=== PATIENT | female | born 1955 | race African-American/Black ===

== ENCOUNTER 2016-09-04 18:45 | Inpatient (IN) | payer OTHER ==
[~2016-09-04] VITALS: Ht 160 cm; Wt 46.3 kg
[2016-09-04] MEDS ORDERED: LOSARTAN POTASS50 MG ORAL (19:11)
[2016-09-04] MEDS ORDERED: METFORMIN HCL500 M1 ORAL (19:11)
[2016-09-04] MEDS ORDERED: LANTUS SOL100 UNIT/1 SUBQ (19:11)
[2016-09-04 19:20] VITALS: BP 123/87
[2016-09-04] MEDS ORDERED: Zosyn 2.25gm inj IV ONE (19:45)
[2016-09-04 20:01] LABS: MEAN CORPUSCULAR HEMOGLOBIN 28.5 PG (27.0-31.0); MEAN CORPUSCULAR HGB CONC 31.2 G/DL (32.0-36.0); MEAN CORPUSCULAR VOLUME 91 FL (80-99); PLATELET COUNT 647 K/UL (150-450); RED BLOOD COUNT 3.43 M/UL (4.20-5.40); RED CELL DISTRIBUTION WIDTH 12.6 % (11.6-14.8)
[2016-09-04 20:20] LABS: INR 1.2 (0.9-1.1); PROTHROMBIN TIME 12.2 SEC (9.30-11.50)
[2016-09-04 20:24] LABS: ALANINE AMINOTRANSFERASE 16 U/L (3-33); ALBUMIN/GLOBULIN RATIO 0.5 (1.0-2.7); ANION GAP 15 (5-15); ASPARTATE AMINO TRANSFERASE 18 U/L (5-40); CARBON DIOXIDE 23 mEQ/L (20-30); CHLORIDE 89 mEQ/L (98-107); CREATININE 0.7 mg/dL (0.5-0.9); GLOMERULAR FILTRATION RATE > 60 mL/min (>60); HEMOLYSIS 61; POTASSIUM 3.8 mEQ/L (3.4-4.9); SODIUM 127 mEQ/L (135-145); TOTAL PROTEIN 7.4 g/dL (6.6-8.7)
[2016-09-04] MEDS ORDERED: Zolpidem 5mg tab ORAL PRN (21:30)
[2016-09-04] MEDS ORDERED: NS 1000ml 1,400 ML IVLG ONE (21:30)
[2016-09-04] MEDS ORDERED: Miralax 17gm pkt ORAL PRN (21:30)
[2016-09-04] MEDS ORDERED: LORazepam Inj 2mg/ml 1ml IV PRN (21:30)
[2016-09-04 21:45] LABS: BAND NEUTROPHILS % (MANUAL) 2 % (0-8); LYMPHOCYTES % (MANUAL) 7 % (20-45); NEUTROPHILS % (MANUAL) 83 % (45-75); TOTAL CELLS COUNTED 100
[2016-09-04 21:46] LABS: ANISOCYTOSIS 1+; BASOPHILS % (MANUAL) 0 % (0-2); EOSINOPHILS % (MANUAL) 0 % (0-3); MACROCYTES 1+; PLATELET ESTIMATE INCREASED; POLYCHROMASIA 1+
[2016-09-04 21:47] LABS: PLATELET MORPHOLOGY NORMAL
[2016-09-04 21:56] VITALS: BP 86/46
--- NOTE | 2016-09-04 22:49 | Emergency Room Report ---
History of Present Illness General Chief Complaint: Skin Rash/Abscess Source: Patient (RAMA FAULKNER) Present Illness HPI The patient is a 61-year-old female with a history of hypertension and diabetes presenting with left foot pain. The patient states that she was seen at another hospital 2 weeks prior for infection of the left foot and was placed on wound care at home. The patient states that she has had 2 wound care visits since that time and believes the infection has now worsened. The patient states that she consulted her primary care physician who prescribed her with Keflex and told her to go to the emergency department. The pain of the left foot is described as an 8/10 dull ache it does not radiate. The patient denies numbness or tingling of the extremity. The patient states that she has lost toes on the right foot due to complications of diabetes. (RAMA FAULKNER) Allergies: Coded Allergies: No Known Allergies (Unverified , 09/04/16) Patient History Past Medical History: see triage record Pertinent Family History: none Reviewed Nursing Documentation: PMH: Agreed, PSxH: Agreed (RAMA FAULKNER) Nursing Documentation-PMH Past Medical History: No History, Except For Hx Hypertension: Yes Hx Diabetes: Yes (RAMA FAULKNER) Review of Systems All Other Systems: negative except mentioned in HPI (RAMA FAULKNER) Physical Exam Vital Signs Date Time Temp Pulse Resp B/P Pulse Ox O2 Delivery O2 Flow Rate FiO2 09/04/16 19:06 98.8 100 15 123/87 99 Room Air (RAMA FAULKNERABeth) Medical Decision Making PA Attestation Dr. Wagoner is my supervising physician. Patient management was discussed with my supervising physician (RAMA FAULKNER) Diagnostic Impression: Primary Impression: Severe sepsis Additional Impressions: Abscess of left foot including toes Diabetes mellitus with foot ulcer and gangrene Hyperglycemia due to type 1 diabetes mellitus Anemia, chronic disease Laboratory Tests Test 09/04/16 19:50 09/04/16 19:52 09/04/16 21:42 Lactate Dehydrogenase 272 U/L (135-230) H White Blood Count 31.0 K/UL (4.8-10.8) *H Red Blood Count 3.43 M/UL (4.20-5.40) L Hemoglobin 9.8 G/DL (12.0-16.0) L Hematocrit 31.2 % (37.0-47.0) L Mean Corpuscular Volume 91 FL (80-99) Mean Corpuscular Hemoglobin 28.5 PG (27.0-31.0) Mean Corpuscular Hemoglobin Concent 31.2 G/DL (32.0-36.0) L Red Cell Distribution Width 12.6 % (11.6-14.8) Platelet Count 647 K/UL (150-450) H Mean Platelet Volume 6.0 FL (6.5-10.1) L Neutrophils (%) (Auto) % (45.0-75.0) Lymphocytes (%) (Auto) % (20.0-45.0) Monocytes (%) (Auto) % (1.0-10.0) Eosinophils (%) (Auto) % (0.0-3.0) Basophils (%) (Auto) % (0.0-2.0) Differential Total Cells Counted 100 Neutrophils % (Manual) 83 % (45-75) H Lymphocytes % (Manual) 7 % (20-45) L Monocytes % (Manual) 8 % (1-10) Eosinophils % (Manual) 0 % (0-3) Basophils % (Manual) 0 % (0-2) Band Neutrophils 2 % (0-8) Platelet Estimate Increased H Platelet Morphology Normal Polychromasia 1+ Anisocytosis 1+ Macrocytosis 1+ Prothrombin Time 12.2 SEC (9.30-11.50) H Prothrombin Time INR 1.2 (0.9-1.1) H PTT 33 SEC (23-33) Sodium Level 127 mEQ/L (135-145) L Potassium Level 3.8 mEQ/L (3.4-4.9) Chloride Level 89 mEQ/L (98-107) L Carbon Dioxide Level 23 mEQ/L (20-30) Anion Gap 15 (5-15) Blood Urea Nitrogen 20 mg/dL (7-23) Creatinine 0.7 mg/dL (0.5-0.9) Estimate Glomerular Filtration Rate > 60 mL/min (>60) Glucose Level 323 mg/dL (74-106) H Calcium Level 9.0 mg/dL (8.6-10.2) Total Bilirubin 0.5 mg/dL (0.0-1.2) Aspartate Amino Transferase (AST) 18 U/L (5-40) Alanine Aminotransferase (ALT) 16 U/L (3-33) Alkaline Phosphatase 164 U/L (35-104) H Total Protein 7.4 g/dL (6.6-8.7) Albumin 2.7 g/dL (3.5-5.2) L Globulin 4.7 g/dL Albumin/Globulin Ratio 0.5 (1.0-2.7) L Lactic Acid Level 1.10 mmol/L (0.66-2.22) (RAMA FAULKNER) ER Course Patient signed out to me. She's waiting medical surgical bed for diabetic foot infection. She actually has severe gangrene with cellulitis and abscess. She most likely has osteomyelitis and no evidence of necrotizing fasciitis. I sent a wound culture to take her therapy. Blood pressure was dropping somewhat IV fluid given. She will be upgraded to telemetry. (RYAN ZHAO M.D.) Last Vital Signs Date Time Temp Pulse Resp B/P Pulse Ox O2 Delivery O2 Flow Rate FiO2 09/04/16 21:56 98.6 83 21 86/46 98 Room Air Status: improved (RAMA FAULKNER) Disposition: ADMITTED INPATIENT Condition: Serious Referrals: [facility],REFERR[facility] (PCP) RAMA FAULKNER Sep 04, 2016 22:49 RYAN ZHAO M.D. Sep 04, 2016 23:33
[2016-09-04] MEDS ORDERED: Cefepime 2gm ONE (22:56)
[2016-09-04 23:51] VITALS: BP 119/89
[2016-09-05] VITALS (9 sets, daily range): BP systolic 90–138; BP diastolic 51–85
[2016-09-05] MEDS ORDERED: Tubing IV Cassette IV ONE ×2 (01:05→05:44)
[2016-09-05] MEDS ORDERED: Vancomycin 1gm inj IVPB ONE (01:05)
[2016-09-05] MEDS ORDERED: NS 250 ML ONE (01:05)
[2016-09-05] MEDS: Vancomycin 1gm/D5W 250ml IVPB SCH ×4 (01:07→13:46)
[2016-09-05] MEDS ORDERED: Cefepime 2gm ONE (05:43)
[2016-09-05] MEDS ORDERED: D5W 50 ML IV ONE (05:44)
[2016-09-05 08:13] LABS: MEAN CORPUSCULAR HEMOGLOBIN 30.1 PG (27.0-31.0); MEAN CORPUSCULAR HGB CONC 33.9 G/DL (32.0-36.0); MEAN CORPUSCULAR VOLUME 89 FL (80-99); MEAN PLATELET VOLUME 6.4 FL (6.5-10.1); PLATELET COUNT 663 K/UL (150-450); RED BLOOD COUNT 3.39 M/UL (4.20-5.40); RED CELL DISTRIBUTION WIDTH 12.3 % (11.6-14.8)
[2016-09-05 08:14] LABS: WHITE BLOOD COUNT 26.4 K/UL (4.8-10.8)
[2016-09-05 08:28] LABS: ALANINE AMINOTRANSFERASE 29 U/L (3-33); ALBUMIN/GLOBULIN RATIO 0.5 (1.0-2.7); ANION GAP 18 (5-15); ASPARTATE AMINO TRANSFERASE 39 U/L (5-40); CALCIUM 8.1 mg/dL (8.6-10.2); CARBON DIOXIDE 19 mEQ/L (20-30); CHLORIDE 98 mEQ/L (98-107); CHOLESTEROL 89 mg/dL (< 200); CHOLESTEROL/HDL RATIO 4.2 (3.3-4.4); CREATININE 0.5 mg/dL (0.5-0.9); GLOMERULAR FILTRATION RATE > 60 mL/min (>60); HEMOLYSIS 1; LDL CHOLESTEROL (CALC.) 47 mg/dL (60-99); POTASSIUM 3.2 mEQ/L (3.4-4.9); SODIUM 135 mEQ/L (135-145); TOTAL PROTEIN 6.7 g/dL (6.6-8.7)
[2016-09-05] MEDS: NovoLOG Insulin Flexpen SUBQ SCH ×4 (08:49→21:04)
[2016-09-05 10:06] LABS: BAND NEUTROPHILS % (MANUAL) 8 % (0-8); BASOPHILS % (MANUAL) 0 % (0-2); EOSINOPHILS % (MANUAL) 1 % (0-3); LYMPHOCYTES % (MANUAL) 4 % (20-45); NEUTROPHILS % (MANUAL) 80 % (45-75); PLATELET ESTIMATE INCREASED; PLATELET MORPHOLOGY NORMAL; TOTAL CELLS COUNTED 100
[2016-09-05 10:07] LABS: ANISOCYTOSIS 1+; BURR CELLS OCCASIONAL
[2016-09-05] MEDS ORDERED: NEURONTIN300 MG ORAL (11:00)
[2016-09-05] MEDS ORDERED: LIPITOR80 MG ORAL (11:00)
[2016-09-05] MEDS ORDERED: CEPHALEXIN250 MG ORAL (11:00)
--- NOTE | 2016-09-05 11:01 | Diagnostic Imaging Report ---
Indication: Pain Comparison: None Findings: 3 views of the left foot were obtained. Soft tissue swelling is present. There is a osteolytic defect suspected in the area of the first distal phalange as well as the fourth distal phalange suspicious for osteomyelitis. Differential includes subacute fractures with adjacent bone loss secondary to hyperemia. Please correlate clinically. Generalized soft tissue swelling is present. Impression: Trauma versus infection as discussed above. Please correlate clinically.
[2016-09-05] MEDS: Losartan 50mg tab ORAL SCH (11:50)
[2016-09-05] MEDS: Heparin 5000 units/ml inj SUBQ SCH ×2 (11:53→20:59)
--- NOTE | 2016-09-05 16:56 | History and Physical ---
History of Present Illness General Date patient seen: Sep 05, 2016 Time patient seen: 16:00 Reason for Hospitalization: L foot ulcer Present Illness HPI 61 y/old female presented with 3 weeks of nonhealing L foot wound and left foot pain L foot wound after accidental slip and fall patient with hx of DM and PVD, hx of recent R great toe amputation ( November2015) , ambulates with walker after surgery, slipped and fall and injured L foot able to ambulate with walker, however wound is not healing seen providers in [facility], nothing was done then she fup with new PCP and started on oral abx without much success PMD recommended visit to ER for IV abx upon arrival to ED workup revealed severe leukocytosis -31.0, afebrile, lactic acid WNL started on IVF resuscitation septic workup initiated and afterwards started on empiric abx in addition,evidence of acute hypo Na -126, resolved after IVF resuscitation Allergies: Coded Allergies: No Known Allergies (Unverified , 09/04/16) Medication History Scheduled Atorvastatin (Lipitor), 40 MG ORAL BEDTIME, (Reported) Cephalexin (Cephalexin), 250 MG ORAL EVERY 6 HOURS, (Reported) Gabapentin (Neurontin), 300 MG ORAL THREE TIMES A DAY, (Reported) Insulin Glargine (Lantus), 0 SUBQ BEDTIME, (Reported) Losartan Potassium* (Losartan Potassium*), 50 MG ORAL DAILY, (Reported) Metformin Hcl* (Metformin Hcl*), 500 MG ORAL TWICE A DAY, (Reported) Patient History History Provided By: Patient Healthcare decision maker Resuscitation status Full Code Advanced Directive on File Past Medical/Surgical History Past Medical/Surgical History: (1) PVD (peripheral vascular disease) (2) HTN (hypertension) (3) Diabetes mellitus with foot ulcer and gangrene (4) Anemia, chronic disease Review of Systems Constitutional: Reports: weakness Eye: Reports: no symptoms ENT: Reports: no symptoms Respiratory: Reports: no symptoms Cardiovascular: Reports: no symptoms, other - hx of HTN Gastrointestinal: Reports: no symptoms Genitourinary: Reports: no symptoms Musculoskeletal: Reports: see HPI Skin: Reports: see HPI Psychiatric: Reports: no symptoms Neurological: Reports: no symptoms Endocrine: Reports: other - diabetes Hematologic/Lymphatic: Reports: anemia Physical Exam General Appearance: no apparent distress, alert, cachetic Lines, tubes and drains: peripheral HEENT: normocephalic, atraumatic, anicteric, mucous membranes moist, PERRL Neck: non-tender, supple Respiratory/Chest: lungs clear, no respiratory distress, no accessory muscle use Cardiovascular/Chest: normal rate, regular rhythm, no JVD Abdomen: normal bowel sounds, non tender, soft Extremities: other - R great toe amputated, healed, L foot ulcer ( see pics) Neurologic: abnormal gait, alert, responsive, normal mood/affect Musculoskeletal: atrophy - BLE Last 24 Hour Vital Signs Date Time Temp Pulse Resp B/P Pulse Ox O2 Delivery O2 Flow Rate FiO2 09/05/16 11:55 98.0 78 18 108/61 100 Room Air 09/05/16 11:50 108/59 09/05/16 10:20 97.4 89 18 120/72 100 Room Air 09/05/16 08:50 99 14 131/79 98 Room Air 09/05/16 07:25 97.3 97 18 138/83 100 Room Air 09/05/16 06:34 88 24 102/63 100 Room Air 09/05/16 05:00 86 24 133/85 95 Room Air 09/05/16 03:22 88 22 106/63 100 Room Air 09/05/16 01:30 88 22 90/57 100 Room Air 09/04/16 23:51 97.4 91 13 119/89 96 Room Air 09/04/16 21:56 98.6 83 21 86/46 98 Room Air 09/04/16 20:58 98.8 09/04/16 19:20 98.8 98 15 123/87 99 Room Air 09/04/16 19:06 98.8 100 15 123/87 99 Room Air Intake and Output 09/04/16 09/05/16 19:00 07:00 Intake Total 1600 ml Balance 1600 ml IV Total 1600 ml # Voids 1 # Bowel Movements 2 Laboratory Tests Test 09/04/16 19:50 09/04/16 19:52 09/04/16 21:42 09/05/16 07:30 Lactate Dehydrogenase 272 U/L (135-230) H White Blood Count 31.0 K/UL (4.8-10.8) *H 26.4 K/UL (4.8-10.8) *H Red Blood Count 3.43 M/UL (4.20-5.40) L 3.39 M/UL (4.20-5.40) L Hemoglobin 9.8 G/DL (12.0-16.0) L 10.2 G/DL (12.0-16.0) L Hematocrit 31.2 % (37.0-47.0) L 30.1 % (37.0-47.0) L Mean Corpuscular Volume 91 FL (80-99) 89 FL (80-99) Mean Corpuscular Hemoglobin 28.5 PG (27.0-31.0) 30.1 PG (27.0-31.0) Mean Corpuscular Hemoglobin Concent 31.2 G/DL (32.0-36.0) L 33.9 G/DL (32.0-36.0) Red Cell Distribution Width 12.6 % (11.6-14.8) 12.3 % (11.6-14.8) Platelet Count 647 K/UL (150-450) H 663 K/UL (150-450) H Mean Platelet Volume 6.0 FL (6.5-10.1) L 6.4 FL (6.5-10.1) L Neutrophils (%) (Auto) % (45.0-75.0) % (45.0-75.0) Lymphocytes (%) (Auto) % (20.0-45.0) % (20.0-45.0) Monocytes (%) (Auto) % (1.0-10.0) % (1.0-10.0) Eosinophils (%) (Auto) % (0.0-3.0) % (0.0-3.0) Basophils (%) (Auto) % (0.0-2.0) % (0.0-2.0) Differential Total Cells Counted 100 100 Neutrophils % (Manual) 83 % (45-75) H 80 % (45-75) H Lymphocytes % (Manual) 7 % (20-45) L 4 % (20-45) L Monocytes % (Manual) 8 % (1-10) 7 % (1-10) Eosinophils % (Manual) 0 % (0-3) 1 % (0-3) Basophils % (Manual) 0 % (0-2) 0 % (0-2) Band Neutrophils 2 % (0-8) 8 % (0-8) Platelet Estimate Increased H Increased H Platelet Morphology Normal Normal Polychromasia 1+ Anisocytosis 1+ 1+ Macrocytosis 1+ Prothrombin Time 12.2 SEC (9.30-11.50) H Prothromb Time International Ratio 1.2 (0.9-1.1) H Activated Partial Thromboplast Time 33 SEC (23-33) Sodium Level 127 mEQ/L (135-145) L 135 mEQ/L (135-145) Potassium Level 3.8 mEQ/L (3.4-4.9) 3.2 mEQ/L (3.4-4.9) L Chloride Level 89 mEQ/L (98-107) L 98 mEQ/L (98-107) Carbon Dioxide Level 23 mEQ/L (20-30) 19 mEQ/L (20-30) L Anion Gap 15 (5-15) 18 (5-15) H Blood Urea Nitrogen 20 mg/dL (7-23) 14 mg/dL (7-23) Creatinine 0.7 mg/dL (0.5-0.9) 0.5 mg/dL (0.5-0.9) Estimat Glomerular Filtration Rate > 60 mL/min (>60) > 60 mL/min (>60) Glucose Level 323 mg/dL (74-106) H 327 mg/dL (74-106) H Calcium Level 9.0 mg/dL (8.6-10.2) 8.1 mg/dL (8.6-10.2) L Total Bilirubin 0.5 mg/dL (0.0-1.2) 0.4 mg/dL (0.0-1.2) Aspartate Amino Transf (AST/SGOT) 18 U/L (5-40) 39 U/L (5-40) Alanine Aminotransferase (ALT/SGPT) 16 U/L (3-33) 29 U/L (3-33) Alkaline Phosphatase 164 U/L (35-104) H 251 U/L (35-104) H Total Protein 7.4 g/dL (6.6-8.7) 6.7 g/dL (6.6-8.7) Albumin 2.7 g/dL (3.5-5.2) L 2.4 g/dL (3.5-5.2) L Globulin 4.7 g/dL 4.3 g/dL Albumin/Globulin Ratio 0.5 (1.0-2.7) L 0.5 (1.0-2.7) L Lactic Acid Level 1.10 mmol/L (0.66-2.22) [place] Cells Occasional Hemoglobin A1c 13.0 % (< 6.0) H Triglycerides Level 106 mg/dL (< 150) Cholesterol Level 89 mg/dL (< 200) LDL Cholesterol 47 mg/dL (60-99) L HDL Cholesterol 21 mg/dL (> 60) Cholesterol/HDL Ratio 4.2 (3.3-4.4) Thyroid Stimulating Hormone (TSH) 1.610 uIU/mL (0.300-4.500) Height (Feet): 5 Height (Inches): 3.00 Weight (Pounds): 102 Medications Current Medications Medications (Trade) Dose Ordered Sig/Darryl Route PRN Reason Start Time Stop Time Status Last Admin Dose Admin Acetaminophen (Tylenol) 650 mg Q4H PRN ORAL fever 09/04/16 21:30 10/04/16 21:29 Al Hydroxide/Mg Hydroxide (Mylanta II) 30 ml Q6H PRN ORAL dyspepsia 09/04/16 21:30 10/04/16 21:29 Cefepime HCl/ Dextrose (Maxipime/D5W 50ml) 50 ml @ 100 mls/hr EVERY 8 HOURS IVPB 09/05/16 14:00 09/11/16 22:59 09/05/16 13:03 Dextrose (Dextrose 50%) STAT PRN IV Hypoglycemia 09/04/16 21:30 10/04/16 21:29 Heparin Sodium (Porcine) (Heparin 5000 units/ml) 5,000 units EVERY 12 HOURS SUBQ 09/05/16 09:00 10/05/16 08:59 09/05/16 11:53 Insulin Aspart BEFORE MEALS AND HS SUBQ 09/05/16 06:30 10/05/16 06:29 09/05/16 11:53 Lorazepam (Ativan 2mg/ml 1ml) 0.5 mg Q4H PRN IV For Anxiety 09/04/16 21:30 09/11/16 21:29 Losartan Potassium (Cozaar) 50 mg DAILY ORAL 09/05/16 09:00 10/05/16 08:59 09/05/16 11:50 Morphine Sulfate (Morphine Sulfate) 1 mg EVERY 4 HOURS PRN IVP For Pain 09/04/16 21:30 09/11/16 21:29 Ondansetron HCl (Zofran) 4 mg Q6H PRN IVP Nausea & Vomiting 09/04/16 21:30 10/04/16 21:29 Polyethylene Glycol (Miralax) 17 gm HSPRN PRN ORAL Constipation 09/04/16 21:30 10/04/16 21:29 Vancomycin HCl (Vanco rx to dose) 1 ea DAILY PRN MISC Per rx protocol 09/04/16 21:30 10/04/16 21:29 Vancomycin HCl 1 gm/Dextrose 250 ml @ 167 mls/hr Q12H IVPB 09/05/16 01:00 09/10/16 00:59 09/05/16 13:46 Zolpidem Tartrate (Ambien) 5 mg HSPRN PRN ORAL Insomnia 09/04/16 21:30 10/04/16 21:29 Assessment/Plan Status Narrative ASSESSMENT possible sepsis leukocytosis Left foot ulcer possible cellulitis possible osteomyelitis DOOC PVD chronic diarrhea acute hyponatremia, resolved hypokalemia Hx of HTN anemia of chronic disease cachexia PLAN OF CARE MS floor ID consult empiric abx fup with cx MRI L foot r/o osteo check ESR, CRP Venous and Arterial Duplex BLE BS management, check HgA1c -13 check lipid panel BP stable on ARB hold SBR below 120 hypo Na resolved after IVF, likely depletional K replaced monitor lytes and renal parameters avoid nephrotoxic monitor HH, anemia workup wound care, wound nurse eval DVT prophylaxis fall precautions PT/OT pain management Bowel regimen case discussed and evaluated by supervising physician Neal (Princess)Rhonda NP Sep 05, 2016 16:56
[2016-09-05] MEDS ORDERED: NS 275ml ONE (17:51)
[2016-09-05] MEDS ORDERED: Tubing IV Secondary IV ONE (17:51)
[2016-09-05] MEDS: Mylanta II UD 30ml ORAL PRN (21:06)
[2016-09-06] VITALS (7 sets, daily range): BP systolic 76–139; BP diastolic 37–88
[2016-09-06] MEDS: Vancomycin 1gm/D5W 250ml IVPB SCH ×4 (01:16→12:45)
[2016-09-06] MEDS: NovoLOG Insulin Flexpen SUBQ SCH ×4 (06:25→21:06)
[2016-09-06] MEDS: Losartan 50mg tab ORAL SCH (09:54)
[2016-09-06] MEDS: Heparin 5000 units/ml inj SUBQ SCH ×2 (09:56→21:07)
--- NOTE | 2016-09-06 13:55 | Consultation ---
Consult Note Consult Note ID Dic # [id number] Assessment/Plan A: Leukocytosis LT foot infection / Ischemic changes / probable Osteo / Cellulitis Ro bacteremia HIV Neg in Jul 2016 ( as per Pt ) Ch Diarrhea x 6 mo DM probable PVD and HTN P: Cont pt on IV Vanco and change Cefepime to Zosyn Monitor BMP Monitor CBC Monitor LFT Monitor Cx ( Bl , Wnd, stool Cx) Stool Cryptosporidium, OB, C Diff , WBC Doppler : P HIV Ab :P MRI Lt foot ERIN KEITH M.D. Sep 06, 2016 13:55
--- NOTE | 2016-09-06 15:37 | Pulmonology Progress Note ---
Assessment/Plan Assessment/Plan ASSESSMENT possible sepsis leukocytosis Left foot ulcer possible cellulitis possible osteomyelitis DOOC PVD chronic diarrhea acute hyponatremia, resolved hypokalemia Hx of HTN anemia of chronic disease cachexia PLAN OF CARE MS floor ID consult empiric abx fup with cx: wound cx, stool C dfi, stool for crypto, OP blood cx preliminary negative MRI L foot r/o osteo check ESR, CRP Venous and Arterial Duplex BLE BS management, not controlled HgA1c -13 start Levemir and SS of insulin, titrate in am to add short acting insulin premeal lipid panel stable BP stable on ARB hold SBR below 120 hypo Na resolved after IVF, likely depletional K replaced monitor lytes and renal parameters avoid nephrotoxic monitor HH, anemia workup wound care, wound nurse eval DVT prophylaxis fall precautions PT/OT pain management Bowel regimen case discussed and evaluated by supervising physician Subjective Allergies: Coded Allergies: No Known Allergies (Unverified , 09/04/16) Subjective afebrile, leucocytosis with small trend down seen adn evaluated by ID Objective Last 24 Hour Vital Signs Date Time Temp Pulse Resp B/P Pulse Ox O2 Delivery O2 Flow Rate FiO2 09/06/16 09:54 112/75 09/06/16 08:00 97.9 102 20 112/75 100 Room Air 09/06/16 04:00 98.1 92 20 139/88 100 Room Air 09/06/16 00:00 98.6 87 18 101/60 99 Room Air 09/05/16 20:00 99.0 88 21 99/51 99 Room Air 09/05/16 16:00 98.2 87 22 98/61 97 Room Air Intake and Output 09/05/16 09/06/16 19:00 07:00 Intake Total 800 ml 940 ml Output Total 300 ml Balance 800 ml 640 ml Intake Oral 500 ml 890 ml IV Total 300 ml 50 ml Output Stool Total 300 ml # Voids 1 4 # Bowel Movements 3 3 Objective General Appearance: no apparent distress, alert, cachetic Lines, tubes and drains: peripheral HEENT: normocephalic, atraumatic, anicteric, mucous membranes moist, PERRL Neck: non-tender, supple Respiratory/Chest: lungs clear, no respiratory distress, no accessory muscle use Cardiovascular/Chest: normal rate, regular rhythm, no JVD Abdomen: normal bowel sounds, non tender, soft Extremities: other - R great toe amputated, healed, L foot ulcer ( see pics) Neurologic: abnormal gait, alert, responsive, normal mood/affect Musculoskeletal: atrophy - BLE Microbiology Date/Time Source Procedure Growth Status 09/04/16 21:42 Blood Blood Culture - Preliminary NO GROWTH AFTER 24 HOURS Resulted 09/04/16 21:25 Blood Blood Culture - Preliminary NO GROWTH AFTER 24 HOURS Resulted Laboratory Tests 09/06/16 12:30: Vancomycin Level Trough 11.4 Current Medications Medications (Trade) Dose Ordered Sig/Darryl Route PRN Reason Start Time Stop Time Status Last Admin Dose Admin Acetaminophen (Tylenol) 650 mg Q4H PRN ORAL fever 09/04/16 21:30 10/04/16 21:29 Al Hydroxide/Mg Hydroxide (Mylanta II) 30 ml Q6H PRN ORAL dyspepsia 09/04/16 21:30 10/04/16 21:29 09/05/16 21:06 Dextrose (Dextrose 50%) STAT PRN IV Hypoglycemia 09/04/16 21:30 10/04/16 21:29 Heparin Sodium (Porcine) (Heparin 5000 units/ml) 5,000 units EVERY 12 HOURS SUBQ 09/05/16 09:00 10/05/16 08:59 09/06/16 09:56 Insulin Aspart BEFORE MEALS AND HS SUBQ 09/05/16 06:30 10/05/16 06:29 09/06/16 12:48 Insulin Detemir (Levemir) 10 units Q24H SUBQ 09/06/16 21:00 10/06/16 20:59 Lorazepam (Ativan 2mg/ml 1ml) 0.5 mg Q4H PRN IV For Anxiety 09/04/16 21:30 09/11/16 21:29 Losartan Potassium (Cozaar) 50 mg DAILY ORAL 09/05/16 09:00 10/05/16 08:59 09/06/16 09:54 Morphine Sulfate (Morphine Sulfate) 1 mg EVERY 4 HOURS PRN IVP For Pain 09/04/16 21:30 09/11/16 21:29 Ondansetron HCl (Zofran) 4 mg Q6H PRN IVP Nausea & Vomiting 09/04/16 21:30 10/04/16 21:29 Piperacillin Sod/ Tazobactam Sod/ Dextrose (Zosyn/D5W 100ml) 100 ml @ 25 mls/hr EVERY 8 HOURS IVPB 09/06/16 15:00 09/11/16 14:59 Polyethylene Glycol (Miralax) 17 gm HSPRN PRN ORAL Constipation 09/04/16 21:30 10/04/16 21:29 Vancomycin HCl (Vanco rx to dose) 1 ea DAILY PRN MISC Per rx protocol 09/04/16 21:30 10/04/16 21:29 Vancomycin HCl 1 gm/Dextrose 250 ml @ 167 mls/hr Q12H IVPB 09/05/16 01:00 09/10/16 00:59 09/06/16 12:45 Zolpidem Tartrate (Ambien) 5 mg HSPRN PRN ORAL Insomnia 09/04/16 21:30 10/04/16 21:29 Neal (Rhonda Baca NP Sep 06, 2016 15:37
[2016-09-06] MEDS: Morphine Sulfate 2mg/ml Inj IVP PRN (16:48)
--- NOTE | 2016-09-06 16:51 | Wound Care Consultation ---
Wound Assessment Wound Assessment #1: Wound Present on Admission: Yes New Wound: No Status Change of Wound: No Wound Location Body Site Modif: left, plantar Wound Location Body Site: foot Wound Type: vascular issue w/vascular changes Cricket Test: Does not Cricket Vascular Issues: diabetic foot ulcers Wound Thickness: Full Thickness Wound Length: 8.0 Wound Width: 4.0 Wound Depth: utd Percent of Wound Bed Yellow/Wh: 100 Wound Drainage Amount: None Wound Drainage Odor: Foul Odor Tissue Surrounding Wound: Indurated Wound Assessment #2: Wound Number: #2 Wound Present on Admission: Yes New Wound: No Status Change of Wound: No Wound Location Body Site Modif: left, posterior Wound Location Body Site: toe - big, 2nd,3rd,4th Wound Type: vascular issue w/vascular changes Vascular Issues: diabetic foot ulcers Wound Thickness: Full Thickness Percent of Wound Black/Brown: 100 Wound Drainage Description: Foul Purulent Wound Drainage Amount: Moderate Wound Drainage Odor: Foul Odor Tissue Surrounding Wound: Macerated Wound General Appearance: Blackened, Draining, Necrotic Wound Assessment #3: Wound Number: #3 Wound Present on Admission: Yes New Wound: No Status Change of Wound: No Wound Location Body Site Modif: left, anterior, dorsal Wound Location Body Site: foot Wound Type: vascular issue w/vascular changes Cricket Test: Does not Cricket Wound Thickness: Full Thickness Wound Length: 2.0 Wound Width: 2.5 Wound Depth: utd Wound Drainage Amount: Moderate Wound Drainage Odor: Foul Odor Tissue Surrounding Wound: Indurated Wound General Appearance: Draining, Necrotic Wound Assessment #4: Wound Number: #4 Wound Present on Admission: Yes New Wound: No Status Change of Wound: No Wound Location Body Site Modif: left, anterior Wound Location Body Site: toe - big,2nd,3rd,4th,5th Wound Type: vascular issue w/vascular changes Cricket Test: Does not Cricket Vascular Issues: diabetic foot ulcers Wound Thickness: Full Thickness Wound Drainage Description: Serosanguineous Wound Drainage Amount: Moderate Wound Drainage Odor: Foul Odor Tissue Surrounding Wound: Denuded Wound General Appearance: Draining, Necrotic Wound Assessment #5: Wound Number: #5 Wound Present on Admission: Yes New Wound: No Status Change of Wound: No Wound Location Body Site Modif: left, lower, posterior Wound Location Body Site: leg Wound Type: vascular issue w/vascular changes Cricket Test: Does not Cricket Wound Thickness: Full Thickness Wound Length: 8.0 Wound Width: 4.5 Wound Depth: utd Percent of Wound Bed Yellow/Wh: 100 Wound Drainage Amount: None Wound Drainage Odor: None/Absent Tissue Surrounding Wound: Intact Wound Assessment #6: Wound Number: #6 Wound Present on Admission: Yes New Wound: No Status Change of Wound: No Wound Location Body Site Modif: right, lower, anterior Wound Location Body Site: leg Wound Type: vascular issue w/vascular changes Cricket Test: Does not Cricket Vascular Issues: diabetic foot ulcers Wound Thickness: Full Thickness Wound Length: 9.0 Wound Width: 4.5 Wound Depth: utd Percent of Wound Bed Yellow/Wh: 70 Percent of Wound Black/Brown: 30 Wound Drainage Amount: None Wound Drainage Odor: None/Absent Tissue Surrounding Wound: Intact Wound Comment Pt admitted with dry and draining DM wounds on Left and Right lower legs. Hx of DM with foot ulcer and gangrene, Right great toe amputation on 11/2015, PVD, Anemia. Pt stated "I had a fall incident and wounds wouldn't heal".According to Pt, she was treated with PO ATB but were not effective. Pt is on IV ATB therapy at this time. wounds on Left toe black in color and has odor. Recommendation -Podiatry consult -Local wound treatment:- cleanse with saline pat dry apply adaptic cover with 4x4 and wrap with kerlix till plant quality manager sees pt. -Offload both heels -Elevate both legs -Turn reposition -Keep clean and dry -Optimize nutrition -Assess and f/u with MD for any changes PATRICK OWUSU RN Sep 06, 2016 16:51
[2016-09-06] MEDS: Levemir Flexpen SUBQ SCH (21:07)
[2016-09-07] VITALS: BP 96/56
[2016-09-07] MEDS: Vancomycin 1gm/D5W 250ml IVPB SCH ×4 (00:51→11:42)
--- NOTE | 2016-09-07 01:07 | Consultation ---
DATE OF CONSULTATION: CONSULTING PHYSICIAN: Ryland Wayne M.D. REQUESTING PHYSICIAN: [facility] REASON FOR CONSULTATION: Evaluation of the patient for left foot infection and antibiotic management. HISTORY OF PRESENT ILLNESS: The patient is a 61-year-old female with multiple medical problems including history of hypertension, diabetes, stable post right first toe amputation, who came to the hospital due to the swelling and discoloration of the left foot. The patient has some purulent discharge from the toes. The patient was admitted with the impression of gangrene/ischemic changes of the left foot infection. An Infectious Disease consultation has been requested for further evaluation of the patient and antibiotic management. The patient was taking Keflex two days prior to admission. The above discoloration started about two weeks ago. MEDICATIONS: IV cefepime and vancomycin. ALLERGIES: No known drug allergies. SOCIAL HISTORY: Negative for alcohol, drug abuse, or smoking. FAMILY HISTORY: Not contributing. REVIEW OF SYSTEMS: HEENT: No recent change in vision or hearing. Pulmonary: No cough or shortness of breath. Cardiovascular: No chest or palpitations. Gastrointestinal/Abdomen: No nausea or vomiting. Genitourinary: No dysuria. Musculoskeletal: As mentioned above. PHYSICAL EXAMINATION: VITAL SIGNS: Temperature 97.1 degrees, blood pressure 112/51, pulse 86, and respiratory rate 18. HEENT: Marked pale conjunctivae. No icterus. NECK: No lymphadenopathy. CHEST: Coarse breathing sounds. HEART: S1 and S2. ABDOMEN: Soft. EXTREMITIES: The patient has amputation of the right big toe. Wound has healed. The patient has black necrotic/ischemic changes of the left toe. The patient has edema and discoloration of the dorsum of the left foot with purulent discharge. NEUROLOGIC: Awake and alert. LABORATORY DATA: White blood cells 26, hemoglobin 10, and platelets 663,000. BUN 14 and creatinine 0.7. ALT and AST are unremarkable. Alkaline phosphatase 251. Blood culture is pending. Wound culture was obtained by or. Foot x-ray showed osteolytic defect in the area of the first distal phalanx of the left foot for distal phalanx suspicious for osteomyelitis. ASSESSMENT: The patient is a 61-year-old female with multiple medical problems as listed above, who has left foot infection with necrotic changes. Most likely, the patient has underlying peripheral vascular disease. The patient mostly has osteomyelitis and the patient would benefit from an MRI for further evaluation and broader spectrum antibiotics. PLAN: 1. We will continue the patient on vancomycin and change cefepime to Zosyn. 2. Monitor CBC. 3. Monitor BMP. 4. Monitor cultures, blood and wound. 5. Follow arterial Doppler of lower extremity. 6. MRI of the left foot without contrast for evaluation of osteomyelitis. 7. Recommend surgical evaluation for further workup and possible amputation. Thank you for this consultation. I will follow the patient during this admission with you. Ryland Wayne M.D. DR: JOSSY JOB#: [id number] CC:
[2016-09-07 04:00] VITALS: BP 110/51
[2016-09-07 06:28] LABS: MEAN CORPUSCULAR HEMOGLOBIN 28.9 PG (27.0-31.0); MEAN CORPUSCULAR HGB CONC 31.8 G/DL (32.0-36.0); MEAN CORPUSCULAR VOLUME 91 FL (80-99); MEAN PLATELET VOLUME 5.8 FL (6.5-10.1); PLATELET COUNT 609 K/UL (150-450); RED BLOOD COUNT 2.62 M/UL (4.20-5.40); RED CELL DISTRIBUTION WIDTH 12.6 % (11.6-14.8); WHITE BLOOD COUNT 19.6 K/UL (4.8-10.8)
[2016-09-07] MEDS: NovoLOG Insulin Flexpen SUBQ SCH ×4 (07:07→22:22)
[2016-09-07 07:09] LABS: CARBON DIOXIDE 20 mEQ/L (20-30); CHLORIDE 98 mEQ/L (98-107); POTASSIUM 3.6 mEQ/L (3.4-4.9); SODIUM 133 mEQ/L (135-145)
[2016-09-07 07:10] LABS: ANION GAP 15 (5-15); CALCIUM 7.9 mg/dL (8.6-10.2); CREATININE 0.5 mg/dL (0.5-0.9); CRP QUANT 9.1 mg/dL (< 0.5); GLOMERULAR FILTRATION RATE > 60 mL/min (>60); HEMOLYSIS 1
[2016-09-07 07:13] LABS: FERRITIN 791 ng/mL (13-150)
[2016-09-07 07:15] LABS: HEMOLYSIS 4; IRON 28 ug/dL (37-145); TOTAL IRON BINDING CAPACITY 138 ug/dL (250-400)
[2016-09-07 08:00] VITALS: BP 97/59
[2016-09-07] MEDS: Losartan 50mg tab ORAL SCH (09:00)
[2016-09-07] MEDS: Heparin 5000 units/ml inj SUBQ SCH ×2 (09:17→22:21)
[2016-09-07 10:29] LABS: ANISOCYTOSIS 1+; BAND NEUTROPHILS % (MANUAL) 0 % (0-8); BASOPHILS % (MANUAL) 0 % (0-2); EOSINOPHILS % (MANUAL) 0 % (0-3); HYPOCHROMASIA 3+; LYMPHOCYTES % (MANUAL) 17 % (20-45); NEUTROPHILS % (MANUAL) 73 % (45-75); PLATELET ESTIMATE INCREASED; PLATELET MORPHOLOGY NORMAL; TOTAL CELLS COUNTED 100
[2016-09-07 11:47] LABS: ERYTHROCYTE SEDIMENTATION RATE 130 MM/HR (0-30)
[2016-09-07 12:00] VITALS: BP 134/79
--- NOTE | 2016-09-07 15:43 | Diagnostic Imaging Report ---
Indication: Pain and swelling Technique: Left forefoot imaging utilizing multiplanar T1 fast spin-echo, proton and T2 fast spin-echo with fat saturation, and STIR. Comparison: Plain film 09/04/16 Findings: There are fractures involving the heads of the second third and fourth metatarsals. As expected there is bone marrow edema about the fracture sites with soft tissue swelling. In addition there is a fracture of the distal phalange of the hallux with bone marrow edema involving the distal phalange. Soft tissue swelling and subcutaneous edema noted. High addition there is abnormal bone marrow edema within the second proximal phalange. Extensive soft tissue swelling is present along the dorsal aspect of the forefoot especially in the area of the MTP joints. Suggestion of skin ulceration at the level of the the dorsal aspect of the third proximal phalange. Moderate amount of soft tissue air is noted surrounding the third phalanges. Whether this is a consequence of incision and drainage or related to infection is unknown. Impression: Fractures involving the second, third, fourth metatarsal heads and the first distal phalange with associated bone marrow edema. Suspect there may be superimposed osteomyelitis given the extent of soft tissue involvement, presence of ulceration at least in one location (described above) bone marrow edema of the second proximal phalange and soft tissue gas. Unfortunately, MRI diagnosis of osteomyelitis and infection is problematic with much lower specificity when there is coexisting trauma, such as in this case.
[2016-09-07 16:00] VITALS: BP 118/70
[2016-09-07 16:53] LABS: MEAN CORPUSCULAR HEMOGLOBIN 28.4 PG (27.0-31.0); MEAN CORPUSCULAR HGB CONC 29.3 G/DL (32.0-36.0); MEAN CORPUSCULAR VOLUME 97 FL (80-99); MEAN PLATELET VOLUME 5.7 FL (6.5-10.1); PLATELET COUNT 608 K/UL (150-450); RED BLOOD COUNT 2.69 M/UL (4.20-5.40); RED CELL DISTRIBUTION WIDTH 13.5 % (11.6-14.8); WHITE BLOOD COUNT 18.9 K/UL (4.8-10.8)
--- NOTE | 2016-09-07 17:13 | Pulmonology Progress Note ---
Assessment/Plan Problems: (1) Severe sepsis (2) Abscess of left foot including toes (3) Anemia, chronic disease (4) Hyperglycemia due to type 1 diabetes mellitus (5) HTN (hypertension) (6) PVD (peripheral vascular disease) (7) Diabetes mellitus with foot ulcer and gangrene Assessment/Plan iv antibiotics check cultures Podiatry consutl check MRI vascular studies sliding scale Subjective ROS Limited/Unobtainable: No Constitutional: Reports: no symptoms HEENT: Repors: no symptoms Allergies: Coded Allergies: No Known Allergies (Unverified , 09/04/16) Objective Last 24 Hour Vital Signs Date Time Temp Pulse Resp B/P Pulse Ox O2 Delivery O2 Flow Rate FiO2 09/07/16 12:00 97.9 101 18 134/79 100 Room Air 09/07/16 09:00 97/59 09/07/16 08:00 97.5 98 18 97/59 97 Room Air 09/07/16 04:00 98.4 90 18 110/51 98 Room Air 09/07/16 00:00 98.8 85 18 96/56 99 Room Air 09/06/16 21:51 85 114/49 09/06/16 20:00 97.1 95 18 76/37 98 Room Air 09/06/16 17:18 98.1 Intake and Output 09/06/16 09/07/16 19:00 07:00 Intake Total 650 ml 825 ml Balance 650 ml 825 ml Intake Oral 600 ml IV Total 50 ml 825 ml # Voids 2 2 General Appearance: WD/WN HEENT: normocephalic Respiratory/Chest: chest wall non-tender, lungs clear Cardiovascular: normal peripheral pulses, normal rate Abdomen: normal bowel sounds, soft, non tender Genitourinary: normal external genitalia Skin: no rash 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 Complete 09/06/16 13:45 Stool Ordered 09/05/16 08:11 Rectum VRE Culture - Final NO VANCOMYCIN RESISTANT ENTEROCOCCUS ... Complete Laboratory Tests 09/07/16 05:25: White Blood Count 19.6H, Red Blood Count 2.62L, Hemoglobin 7.6L, Hematocrit 23.8L, Mean Corpuscular Volume 91, Mean Corpuscular Hemoglobin 28.9, Mean Corpuscular Hemoglobin Concent 31.8L, Red Cell Distribution Width 12.6, Platelet Count 609H, Mean Platelet Volume 5.8L, Neutrophils (%) (Auto) , Lymphocytes (%) (Auto) , Monocytes (%) (Auto) , Eosinophils (%) (Auto) , Basophils (%) (Auto) , Differential Total Cells Counted 100, Neutrophils % ( Manual) 73, Lymphocytes % (Manual) 17L, Monocytes % (Manual) 10, Eosinophils % ( Manual) 0, Basophils % (Manual) 0, Band Neutrophils 0, Platelet Estimate IncreasedH, Platelet Morphology Normal, Hypochromasia 3+, Anisocytosis 1+, Erythrocyte Sedimentation Rate 130H, Sodium Level 133L, Potassium Level 3.6, Chloride Level 98, Carbon Dioxide Level 20, Anion Gap 15, Blood Urea Nitrogen 9 , Creatinine 0.5, Estimat Glomerular Filtration Rate > 60, Glucose Level 270H, Calcium Level 7.9L, Iron Level 28L, Total Iron Binding Capacity 138L, Percent Iron Saturation 20, Unsaturated Iron Binding 110L, Ferritin 791H, C-Reactive Protein, Quantitative 9.1H, Vitamin B12 Level 765, Folate [Pending], HIV (1&2) Antibody Rapid Negative 09/07/16 16:15: White Blood Count 18.9H, Red Blood Count 2.69L, Hemoglobin 7.6L, Hematocrit 26.0L, Mean Corpuscular Volume 97, Mean Corpuscular Hemoglobin 28.4, Mean Corpuscular Hemoglobin Concent 29.3L, Red Cell Distribution Width 13.5, Platelet Count 608H, Mean Platelet Volume 5.7L, Neutrophils (%) (Auto) , Lymphocytes (%) (Auto) , Monocytes (%) (Auto) , Eosinophils (%) (Auto) , Basophils (%) (Auto) , Neutrophils % (Manual) [Pending], Lymphocytes % (Manual) [Pending], Platelet Estimate [Pending], Platelet Morphology [Pending] Current Medications Medications (Trade) Dose Ordered Sig/Darryl Route PRN Reason Start Time Stop Time Status Last Admin Dose Admin Acetaminophen (Tylenol) 650 mg Q4H PRN ORAL fever 09/04/16 21:30 10/04/16 21:29 Al Hydroxide/Mg Hydroxide (Mylanta II) 30 ml Q6H PRN ORAL dyspepsia 09/04/16 21:30 10/04/16 21:29 09/05/16 21:06 Dextrose (Dextrose 50%) STAT PRN IV Hypoglycemia 09/04/16 21:30 10/04/16 21:29 Heparin Sodium (Porcine) (Heparin 5000 units/ml) 5,000 units EVERY 12 HOURS SUBQ 09/05/16 09:00 10/05/16 08:59 09/07/16 09:17 Insulin Aspart BEFORE MEALS AND HS SUBQ 09/05/16 06:30 10/05/16 06:29 09/07/16 11:40 Insulin Detemir 10 units 10 units Q24H SUBQ 09/06/16 21:00 10/06/16 20:59 09/06/16 21:07 Lorazepam (Ativan 2mg/ml 1ml) 0.5 mg Q4H PRN IV For Anxiety 09/04/16 21:30 09/11/16 21:29 Losartan Potassium (Cozaar) 50 mg DAILY ORAL 09/05/16 09:00 10/05/16 08:59 09/06/16 09:54 Morphine Sulfate (Morphine Sulfate) 1 mg EVERY 4 HOURS PRN IVP For Pain 09/04/16 21:30 09/11/16 21:29 09/06/16 16:48 Ondansetron HCl (Zofran) 4 mg Q6H PRN IVP Nausea & Vomiting 09/04/16 21:30 10/04/16 21:29 Piperacillin Sod/ Tazobactam Sod/ Dextrose (Zosyn/D5W 100ml) 100 ml @ 25 mls/hr EVERY 8 HOURS IVPB 09/06/16 15:00 09/11/16 14:59 09/07/16 14:41 Polyethylene Glycol (Miralax) 17 gm HSPRN PRN ORAL Constipation 09/04/16 21:30 10/04/16 21:29 Sodium Chloride (Sodium Chloride 1000ml bag) 1,000 ml @ 75 mls/hr [id number] IV 09/06/16 23:45 10/06/16 23:44 09/06/16 23:45 Vancomycin HCl (Vanco rx to dose) 1 ea DAILY PRN MISC Per rx protocol 09/04/16 21:30 10/04/16 21:29 Vancomycin HCl 1 gm/Dextrose 250 ml @ 167 mls/hr Q12H IVPB 09/05/16 01:00 09/10/16 00:59 09/07/16 11:42 Zolpidem Tartrate (Ambien) 5 mg HSPRN PRN ORAL Insomnia 09/04/16 21:30 10/04/16 21:29 NYLA MORIN Sep 07, 2016 17:13
--- NOTE | 2016-09-07 17:45 | Infectious Diseases Prog Note ---
Assessment/Plan Assessment/Plan ASSESSMENT: 61 y/o female with: Chronic left foot ulcer / multifocal fractures, osteomyelitis - WCx pending. Foul odor, suspect anaerobes - MRI: Fractures involving the second, third, fourth metatarsal heads and the first distal phalange with associated bone marrow edema, probable superimposed osteomyelitis - elevated ESR, CRP - h/o previous amputations Chronic Diarrhea x 6 mo - stool studies pending Negative HIV Leukocytosis - improved, afebrile PAD DM2 - HbA1c 13% Thrombocytosis NKDA Full Code PLAN: continue IV Vanco, Zosyn d# 2. Will need 6 weeks IV ABX for osteomyelitis podiatry eval f/u cultures, stool studies Monitor CBC, temperatures Monitor BMP Wound care d/w Dr. Flores Subjective Allergies: Coded Allergies: No Known Allergies (Unverified , 09/04/16) Subjective remains afebrile. c/o foot pain MRI noted Objective Vital Signs Last 24 Hour Vital Signs Date Time Temp Pulse Resp B/P Pulse Ox O2 Delivery O2 Flow Rate FiO2 09/07/16 16:00 98.2 20 118/70 98 Room Air 09/07/16 12:00 97.9 101 18 134/79 100 Room Air 09/07/16 09:00 97/59 09/07/16 08:00 97.5 98 18 97/59 97 Room Air 09/07/16 04:00 98.4 90 18 110/51 98 Room Air 09/07/16 00:00 98.8 85 18 96/56 99 Room Air 09/06/16 21:51 85 114/49 09/06/16 20:00 97.1 95 18 76/37 98 Room Air Height (Feet): 5 Height (Inches): 3.00 Weight (Pounds): 102 General Appearance: no acute distress Respiratory/Chest: no respiratory distress Cardiovascular: normal rate, regular rhythm Abdomen: normal bowel sounds, soft, non tender, non distended Microbiology Date/Time Source Procedure Growth Status 09/04/16 21:42 Blood Blood Culture - Preliminary NO GROWTH AFTER 48 HOURS Resulted 09/04/16 21:25 Blood Blood Culture - Preliminary NO GROWTH AFTER 48 HOURS Resulted 09/05/16 08:11 Nasal Nares MRSA Culture - Final NO METHICILLIN RESISTANT STAPH AUREUS... Complete 09/06/16 13:45 Stool Ordered 1/7/17 08:11 Rectum VRE Culture - Final NO VANCOMYCIN RESISTANT ENTEROCOCCUS ... Complete Laboratory Tests Test 09/07/16 05:25 09/07/16 16:15 White Blood Count 19.6 K/UL (4.8-10.8) H 18.9 K/UL (4.8-10.8) H Red Blood Count 2.62 M/UL (4.20-5.40) L 2.69 M/UL (4.20-5.40) L Hemoglobin 7.6 G/DL (12.0-16.0) L 7.6 G/DL (12.0-16.0) L Hematocrit 23.8 % (37.0-47.0) L 26.0 % (37.0-47.0) L Mean Corpuscular Volume 91 FL (80-99) 97 FL (80-99) Mean Corpuscular Hemoglobin 28.9 PG (27.0-31.0) 28.4 PG (27.0-31.0) Mean Corpuscular Hemoglobin Concent 31.8 G/DL (32.0-36.0) L 29.3 G/DL (32.0-36.0) L Red Cell Distribution Width 12.6 % (11.6-14.8) 13.5 % (11.6-14.8) Platelet Count 609 K/UL (150-450) H 608 K/UL (150-450) H Mean Platelet Volume 5.8 FL (6.5-10.1) L 5.7 FL (6.5-10.1) L Neutrophils (%) (Auto) % (45.0-75.0) % (45.0-75.0) Lymphocytes (%) (Auto) % (20.0-45.0) % (20.0-45.0) Monocytes (%) (Auto) % (1.0-10.0) % (1.0-10.0) Eosinophils (%) (Auto) % (0.0-3.0) % (0.0-3.0) Basophils (%) (Auto) % (0.0-2.0) % (0.0-2.0) Differential Total Cells Counted 100 Neutrophils % (Manual) 73 % (45-75) Pending Lymphocytes % (Manual) 17 % (20-45) L Pending Monocytes % (Manual) 10 % (1-10) Eosinophils % (Manual) 0 % (0-3) Basophils % (Manual) 0 % (0-2) Band Neutrophils 0 % (0-8) Platelet Estimate Increased H Pending Platelet Morphology Normal Pending Hypochromasia 3+ Anisocytosis 1+ Erythrocyte Sedimentation Rate 130 MM/HR (0-30) H Sodium Level 133 mEQ/L (135-145) L Potassium Level 3.6 mEQ/L (3.4-4.9) Chloride Level 98 mEQ/L (98-107) Carbon Dioxide Level 20 mEQ/L (20-30) Anion Gap 15 (5-15) Blood Urea Nitrogen 9 mg/dL (7-23) Creatinine 0.5 mg/dL (0.5-0.9) Estimat Glomerular Filtration Rate > 60 mL/min (>60) Glucose Level 270 mg/dL (74-106) H Calcium Level 7.9 mg/dL (8.6-10.2) L Iron Level 28 ug/dL (37-145) L Total Iron Binding Capacity 138 ug/dL (250-400) L Percent Iron Saturation 20 % (15-50) Unsaturated Iron Binding 110 ug/dL (112-346) L Ferritin 791 ng/mL (13-150) H C-Reactive Protein, Quantitative 9.1 mg/dL (< 0.5) H Vitamin B12 Level 765 pg/mL (211-946) Folate Pending HIV (1&2) Antibody Rapid Negative (NEGATIVE) Current Medications Medications (Trade) Dose Ordered Sig/Darryl Route PRN Reason Start Time Stop Time Status Last Admin Dose Admin Acetaminophen (Tylenol) 650 mg Q4H PRN ORAL fever 09/04/16 21:30 10/04/16 21:29 Al Hydroxide/Mg Hydroxide (Mylanta II) 30 ml Q6H PRN ORAL dyspepsia 09/04/16 21:30 10/04/16 21:29 09/05/16 21:06 Dextrose (Dextrose 50%) STAT PRN IV Hypoglycemia 09/04/16 21:30 10/04/16 21:29 Heparin Sodium (Porcine) (Heparin 5000 units/ml) 5,000 units EVERY 12 HOURS SUBQ 09/05/16 09:00 10/05/16 08:59 09/07/16 09:17 Insulin Aspart BEFORE MEALS AND HS SUBQ 09/05/16 06:30 10/05/16 06:29 09/07/16 17:28 Insulin Detemir 10 units 10 units Q24H SUBQ 09/06/16 21:00 10/06/16 20:59 09/06/16 21:07 Lorazepam (Ativan 2mg/ml 1ml) 0.5 mg Q4H PRN IV For Anxiety 09/04/16 21:30 09/11/16 21:29 Losartan Potassium (Cozaar) 50 mg DAILY ORAL 09/05/16 09:00 10/05/16 08:59 09/06/16 09:54 Morphine Sulfate (Morphine Sulfate) 1 mg EVERY 4 HOURS PRN IVP For Pain 09/04/16 21:30 09/11/16 21:29 09/06/16 16:48 Ondansetron HCl (Zofran) 4 mg Q6H PRN IVP Nausea & Vomiting 09/04/16 21:30 10/04/16 21:29 Piperacillin Sod/ Tazobactam Sod/ Dextrose (Zosyn/D5W 100ml) 100 ml @ 25 mls/hr EVERY 8 HOURS IVPB 09/06/16 15:00 09/11/16 14:59 09/07/16 14:41 Polyethylene Glycol (Miralax) 17 gm HSPRN PRN ORAL Constipation 09/04/16 21:30 10/04/16 21:29 Sodium Chloride (Sodium Chloride 1000ml bag) 1,000 ml @ 75 mls/hr [id number] IV 09/06/16 23:45 10/06/16 23:44 09/06/16 23:45 Vancomycin HCl (Vanco rx to dose) 1 ea DAILY PRN MISC Per rx protocol 09/04/16 21:30 10/04/16 21:29 Vancomycin HCl 1 gm/Dextrose 250 ml @ 167 mls/hr Q12H IVPB 09/05/16 01:00 09/10/16 00:59 09/07/16 11:42 Zolpidem Tartrate (Ambien) 5 mg HSPRN PRN ORAL Insomnia 09/04/16 21:30 10/04/16 21:29 MARY MITCHELL Sep 07, 2016 17:45
[2016-09-07 18:49] LABS: LYMPHOCYTES % (MANUAL) 15 % (20-45); NEUTROPHILS % (MANUAL) 79 % (45-75); TOTAL CELLS COUNTED 100
[2016-09-07 18:50] LABS: ANISOCYTOSIS 1+; BAND NEUTROPHILS % (MANUAL) 0 % (0-8); BASOPHILS % (MANUAL) 0 % (0-2); EOSINOPHILS % (MANUAL) 0 % (0-3); HYPOCHROMASIA 2+; PLATELET ESTIMATE INCREASED; PLATELET MORPHOLOGY NORMAL
[2016-09-07 20:00] VITALS: BP 128/77
[2016-09-07] MEDS: Levemir Flexpen SUBQ SCH (22:22)
[2016-09-08] VITALS: BP 120/62
[2016-09-08] MEDS: Vancomycin 1gm/D5W 250ml IVPB SCH ×6 (02:27→14:20)
[2016-09-08 04:00] VITALS: BP 112/59
[2016-09-08] MEDS: NovoLOG Insulin Flexpen SUBQ SCH ×4 (07:01→22:07)
[2016-09-08 08:00] VITALS: BP 129/76
[2016-09-08] MEDS: Morphine Sulfate 2mg/ml Inj IVP PRN ×2 (08:37→14:41)
[2016-09-08] MEDS: Losartan 50mg tab ORAL SCH (08:45)
[2016-09-08] MEDS: Heparin 5000 units/ml inj SUBQ SCH ×2 (08:45→22:20)
[2016-09-08 12:00] VITALS: BP 125/81
[2016-09-08 12:27] LABS: OTHERS PATHOLOGIST COMMENT
[2016-09-08 16:00] VITALS: BP 108/66
--- NOTE | 2016-09-08 18:02 | Infectious Diseases Prog Note ---
Assessment/Plan Assessment/Plan ASSESSMENT: 61 y/o female with: Chronic left foot ulcer / multifocal fractures, osteomyelitis - WCx GBS.agalactiae, GNR x2, diptheroids. Foul odor, suspect anaerobes - MRI: Fractures involving the second, third, fourth metatarsal heads and the first distal phalange with associated bone marrow edema, probable superimposed osteomyelitis - elevated ESR, CRP - h/o previous amputations Chronic Diarrhea x 6 mo - negative C.diff. Stool Cx pending Negative HIV Leukocytosis - improved, afebrile PAD DM2 - HbA1c 13% Thrombocytosis NKDA Full Code PLAN: continue IV Vanco, Zosyn d# 3. Will need 6 weeks IV ABX for osteomyelitis podiatry eval f/u cultures, stool studies Monitor CBC, temperatures Monitor BMP Wound care Subjective Allergies: Coded Allergies: No Known Allergies (Unverified , 09/04/16) Subjective remains afebrile. c/o foot pain Objective Vital Signs Last 24 Hour Vital Signs Date Time Temp Pulse Resp B/P Pulse Ox O2 Delivery O2 Flow Rate FiO2 09/08/16 16:00 97.9 90 20 108/66 98 Room Air 09/08/16 15:11 96.3 09/08/16 12:00 96.3 104 18 125/81 100 Room Air 09/08/16 08:45 129/76 09/08/16 08:00 97.9 101 18 129/76 98 Room Air 09/08/16 04:00 98.1 96 20 112/59 97 Room Air 09/08/16 00:00 97.9 95 20 120/62 98 Room Air 09/07/16 20:00 97.2 100 20 128/77 97 Room Air Height (Feet): 5 Height (Inches): 3.00 Weight (Pounds): 102 General Appearance: no acute distress Respiratory/Chest: no respiratory distress Cardiovascular: normal rate, regular rhythm Abdomen: normal bowel sounds, soft, non tender, non distended Microbiology Date/Time Source Procedure Growth Status 09/07/16 20:00 Stool Received 09/07/16 10:00 Stool WBC Smear - Final Complete 09/07/16 09:50 Stool Clostridium difficile Toxin Assay - Final Complete 09/06/16 13:25 Foot Left Gram Stain - Final Resulted 09/06/16 13:25 Wound Culture - Preliminary Gram Negative Bacillus 1 Gram Negative Bacillus 2 Strep Agalactiae Group B Diphtheroids Resulted Laboratory Tests Test 09/07/16 20:00 Stool Occult Blood Positive (NEGATIVE) Current Medications Medications (Trade) Dose Ordered Sig/Darryl Route PRN Reason Start Time Stop Time Status Last Admin Dose Admin Acetaminophen (Tylenol) 650 mg Q4H PRN ORAL fever 09/04/16 21:30 10/04/16 21:29 Al Hydroxide/Mg Hydroxide (Mylanta II) 30 ml Q6H PRN ORAL dyspepsia 09/04/16 21:30 10/04/16 21:29 09/05/16 21:06 Dextrose (Dextrose 50%) STAT PRN IV Hypoglycemia 09/04/16 21:30 10/04/16 21:29 Heparin Sodium (Porcine) (Heparin 5000 units/ml) 5,000 units EVERY 12 HOURS SUBQ 09/05/16 09:00 10/05/16 08:59 09/07/16 22:21 Insulin Aspart BEFORE MEALS AND HS SUBQ 09/05/16 06:30 10/05/16 06:29 09/08/16 17:07 Insulin Detemir 10 units 10 units Q24H SUBQ 09/06/16 21:00 10/06/16 20:59 09/07/16 22:22 Lorazepam (Ativan 2mg/ml 1ml) 0.5 mg Q4H PRN IV For Anxiety 09/04/16 21:30 09/11/16 21:29 Losartan Potassium (Cozaar) 50 mg DAILY ORAL 09/05/16 09:00 10/05/16 08:59 09/06/16 09:54 Morphine Sulfate (Morphine Sulfate) 1 mg EVERY 4 HOURS PRN IVP For Pain 09/04/16 21:30 09/11/16 21:29 09/08/16 14:41 Ondansetron HCl (Zofran) 4 mg Q6H PRN IVP Nausea & Vomiting 09/04/16 21:30 10/04/16 21:29 Piperacillin Sod/ Tazobactam Sod/ Dextrose (Zosyn/D5W 100ml) 100 ml @ 25 mls/hr EVERY 8 HOURS IVPB 09/06/16 15:00 09/11/16 14:59 09/08/16 15:58 Polyethylene Glycol (Miralax) 17 gm HSPRN PRN ORAL Constipation 09/04/16 21:30 10/04/16 21:29 Sodium Chloride (Sodium Chloride 1000ml bag) 1,000 ml @ 75 mls/hr [id number] IV 09/06/16 23:45 10/06/16 23:44 09/08/16 15:58 Vancomycin HCl (Vanco rx to dose) 1 ea DAILY PRN MISC Per rx protocol 09/04/16 21:30 10/04/16 21:29 Vancomycin HCl 1 gm/Dextrose 250 ml @ 167 mls/hr Q12H IVPB 09/05/16 01:00 09/10/16 00:59 09/08/16 14:20 Zolpidem Tartrate (Ambien) 5 mg HSPRN PRN ORAL Insomnia 09/04/16 21:30 10/04/16 21:29 MARY MITCHELL Sep 08, 2016 18:02
--- NOTE | 2016-09-08 18:28 | Consultation ---
Consult Note Consult Note 61 year old female with diabetic neuropathy admitted for leukocytosis and infected left foot ulcer Assessment/Plan Assessment: 1. Leukocytosis 2. Left foot trauma with infected ulceration and gangrene. Wound probes to bone. Soft tissue gas present on MRI 3. Bilateral leg ulcers 4. Right 2nd toe ulcer 5. Diabetic neuropathy Plan: 1. Surgical intervention planned for tomorrow consisting of I&D with debridement and possible transmetatarsal amputation 2. Continue IV antibiotics. Infectious disease specialist following 3. Continue to monitor vitals and labs 4. Continue daily wound care 5. Non weight bearing on left foot Emile Chua DPM Sep 08, 2016 18:28
--- NOTE | 2016-09-08 18:32 | Pulmonology Progress Note ---
Assessment/Plan Problems: (1) Severe sepsis (2) Abscess of left foot including toes (3) Anemia, chronic disease (4) Hyperglycemia due to type 1 diabetes mellitus (5) HTN (hypertension) (6) PVD (peripheral vascular disease) (7) Diabetes mellitus with foot ulcer and gangrene Assessment/Plan iv antibiotics check cultures Podiatry consutl check MRI vascular studies sliding scale Subjective ROS Limited/Unobtainable: No Constitutional: Reports: anorexia, chills, fatigue, fever Musculoskeletal: Reports: pain, stiffness, swelling Allergies: Coded Allergies: No Known Allergies (Unverified , 09/04/16) Objective Last 24 Hour Vital Signs Date Time Temp Pulse Resp B/P Pulse Ox O2 Delivery O2 Flow Rate FiO2 09/08/16 16:00 97.9 90 20 108/66 98 Room Air 09/08/16 15:11 96.3 09/08/16 12:00 96.3 104 18 125/81 100 Room Air 09/08/16 08:45 129/76 09/08/16 08:00 97.9 101 18 129/76 98 Room Air 09/08/16 04:00 98.1 96 20 112/59 97 Room Air 09/08/16 00:00 97.9 95 20 120/62 98 Room Air 09/07/16 20:00 97.2 100 20 128/77 97 Room Air Intake and Output 09/07/16 09/08/16 19:00 07:00 Intake Total 1516 ml 1015 ml Output Total 2000 ml Balance 1516 ml -985 ml Intake Oral 760 ml 840 ml IV Total 756 ml 175 ml Output Urine Total 2000 ml # Voids 2 2 # Bowel Movements 6 4 General Appearance: no acute distress HEENT: normocephalic, atraumatic, PERRL Respiratory/Chest: chest wall non-tender, normal breath sounds, no respiratory distress, chest wall tender Breasts: no masses Cardiovascular: normal peripheral pulses, normal rate, regular rhythm, no JVD Abdomen: normal bowel sounds, soft, non tender, no organomegaly Genitourinary: normal external genitalia Extremities: no cyanosis Skin: no rash, lesions, ulcers 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, no motor/sensory deficits Microbiology Date/Time Source Procedure Growth Status 09/07/16 20:00 Stool Received 09/07/16 10:00 Stool WBC Smear - Final Complete 09/07/16 09:50 Stool Clostridium difficile Toxin Assay - Final Complete 09/06/16 13:25 Foot Left Gram Stain - Final Resulted 09/06/16 13:25 Wound Culture - Preliminary Gram Negative Bacillus 1 Gram Negative Bacillus 2 Strep Agalactiae Group B Diphtheroids Resulted Laboratory Tests 09/07/16 20:00: Stool Occult Blood Positive Current Medications Medications (Trade) Dose Ordered Sig/Darryl Route PRN Reason Start Time Stop Time Status Last Admin Dose Admin Acetaminophen (Tylenol) 650 mg Q4H PRN ORAL fever 09/04/16 21:30 10/04/16 21:29 Al Hydroxide/Mg Hydroxide (Mylanta II) 30 ml Q6H PRN ORAL dyspepsia 09/04/16 21:30 10/04/16 21:29 09/05/16 21:06 Dextrose (Dextrose 50%) STAT PRN IV Hypoglycemia 09/04/16 21:30 10/04/16 21:29 Heparin Sodium (Porcine) (Heparin 5000 units/ml) 5,000 units EVERY 12 HOURS SUBQ 09/05/16 09:00 10/05/16 08:59 09/07/16 22:21 Insulin Aspart BEFORE MEALS AND HS SUBQ 09/05/16 06:30 10/05/16 06:29 09/08/16 17:07 Insulin Detemir 10 units 10 units Q24H SUBQ 09/06/16 21:00 10/06/16 20:59 09/07/16 22:22 Lorazepam (Ativan 2mg/ml 1ml) 0.5 mg Q4H PRN IV For Anxiety 09/04/16 21:30 09/11/16 21:29 Losartan Potassium (Cozaar) 50 mg DAILY ORAL 09/05/16 09:00 10/05/16 08:59 09/06/16 09:54 Morphine Sulfate (Morphine Sulfate) 1 mg EVERY 4 HOURS PRN IVP For Pain 09/04/16 21:30 09/11/16 21:29 09/08/16 14:41 Ondansetron HCl (Zofran) 4 mg Q6H PRN IVP Nausea & Vomiting 09/04/16 21:30 10/04/16 21:29 Piperacillin Sod/ Tazobactam Sod/ Dextrose (Zosyn/D5W 100ml) 100 ml @ 25 mls/hr EVERY 8 HOURS IVPB 09/06/16 15:00 09/11/16 14:59 09/08/16 15:58 Polyethylene Glycol (Miralax) 17 gm HSPRN PRN ORAL Constipation 09/04/16 21:30 10/04/16 21:29 Sodium Chloride (Sodium Chloride 1000ml bag) 1,000 ml @ 75 mls/hr [id number] IV 09/06/16 23:45 10/06/16 23:44 09/08/16 15:58 Vancomycin HCl (Vanco rx to dose) 1 ea DAILY PRN MISC Per rx protocol 09/04/16 21:30 10/04/16 21:29 Vancomycin HCl 1 gm/Dextrose 250 ml @ 167 mls/hr Q12H IVPB 09/05/16 01:00 09/10/16 00:59 09/08/16 14:20 Zolpidem Tartrate (Ambien) 5 mg HSPRN PRN ORAL Insomnia 09/04/16 21:30 10/04/16 21:29 NYLA MORIN Sep 08, 2016 18:32
[2016-09-08 19:00] VITALS: BP 104/64
[2016-09-08] MEDS: Levemir Flexpen SUBQ SCH (22:06)
--- NOTE | 2016-09-08 23:20 | Diagnostic Imaging Report ---
APPROVED REPORT CPT Code: 40866 Present Symptoms Lower Extremity Pain: Bilateral BILATERAL: Imaging reveals a patent deep venous system bilaterally. There is no evidence of thrombus within the femoral, popliteal or tibial segments. The greater saphenous veins are also within normal limits. Doppler indicates normal spontaneous flow within these segments.
[2016-09-09] VITALS (10 sets, daily range): BP systolic 90–155; BP diastolic 60–96
--- NOTE | 2016-09-09 02:27 | Consultation ---
DATE OF CONSULTATION: 09/08/2016 CONSULTING PHYSICIAN: Emile Chua DPM Covering for Dr. Byron Madden. REASON FOR CONSULTATION: Left foot infection . HISTORY OF PRESENT ILLNESS: The patient is a 61-year-old female with a history of diabetic neuropathy, admitted for left foot infection and leukocytosis. The patient states she fell in the bath tub 3 weeks ago, which resulted in left foot and bilateral leg wound. Since admission, the patient was started on IV antibiotics and wound care was implemented. The patient states no current nausea, vomiting, fever, or chills. History of right hallux amputation in 2016. PAST MEDICAL HISTORY: Poorly controlled diabetes. ANTIBIOTICS: IV vancomycin and Zosyn. ALLERGIES: No known drug allergies. SOCIAL HISTORY: Negative for alcohol, drug abuse, or smoking. FAMILY HISTORY: Noncontributory. PHYSICAL EXAMINATION: VITAL SIGNS: On 09/08/2016, temperature 97.9 degrees, blood pressure 108/66, pulse 90, and respiratory rate 20. DERMATOLOGICAL: Left foot with ulceration and gangrene noted at the third toe with exposed bone. Malodor noted. The remaining of the left foot toes with hyperpigmentation at plantar distal tips. Right second toe distal tip with no drainage present. However, the distal tip of the toe appears to be bone. Bilateral legs with multiple superficial ulceration . MUSCULOSKELETAL: Right hallux has been amputated in the past NEUROLOGIC: Insensate to light touch bilaterally. VASCULAR: Pedal pulses are not palpable. No edema noted. LABORATORY DATA: 09/07/2016, white blood count of 18.9, red blood cells 2.69, hemoglobin 7.6, hematocrit 26.0, platelet 108,000, neutrophils 79, ESR 130, CRP 9.1, and hemoglobin A1c 13.0. IMAGING STUDIES: MRI shows soft tissue gas at the second toe on the left along with possible osteomyelitis as well as fractures involving the second, third, and fourth metatarsal head . MICROBIOLOGY: Group B Strep, diphtheroids . VASCULAR STUDIES: Mild ischemia bilaterally. ASSESSMENT: 1. Left foot infected ulcer with an underlying osteomyelitis and soft tissue gas observed in MRI . 2. Leukocytosis. 3. Bilateral leg wounds. 4. Diabetic peripheral neuropathy. 5. Right foot 2nd toe ulcer. PLAN: 1. Surgery is planned for tomorrow. 2. Continue IV antibiotics . 3. We will continue to monitor white blood count and vitals. 4. Continue dressing changes. Thank you for the consultation . Emile Chua DPM DR: Kike JOB#: [id number] CC: EBER
[2016-09-09] MEDS: Vancomycin 1gm/D5W 250ml IVPB SCH ×4 (03:05→15:59)
[2016-09-09] MEDS: NovoLOG Insulin Flexpen SUBQ SCH ×4 (06:14→21:07)
[2016-09-09] MEDS: Heparin 5000 units/ml inj SUBQ SCH ×2 (08:38→21:00)
[2016-09-09] MEDS: Losartan 50mg tab ORAL SCH (08:39)
[2016-09-09 09:10] LABS: MEAN CORPUSCULAR HEMOGLOBIN 29.1 PG (27.0-31.0); MEAN CORPUSCULAR HGB CONC 33.1 G/DL (32.0-36.0); MEAN CORPUSCULAR VOLUME 88 FL (80-99); MEAN PLATELET VOLUME 5.9 FL (6.5-10.1); PLATELET COUNT 801 K/UL (150-450); RED BLOOD COUNT 4.05 M/UL (4.20-5.40); RED CELL DISTRIBUTION WIDTH 12.6 % (11.6-14.8); WHITE BLOOD COUNT 16.4 K/UL (4.8-10.8)
[2016-09-09 09:24] LABS: ANION GAP 14 (5-15); CALCIUM 8.5 mg/dL (8.6-10.2); CARBON DIOXIDE 23 mEQ/L (20-30); CHLORIDE 98 mEQ/L (98-107); CREATININE 0.7 mg/dL (0.5-0.9); GLOMERULAR FILTRATION RATE > 60 mL/min (>60); HEMOLYSIS 2; POTASSIUM 3.4 mEQ/L (3.4-4.9); SODIUM 135 mEQ/L (135-145)
[2016-09-09 09:45] LABS: ANISOCYTOSIS 1+; BAND NEUTROPHILS % (MANUAL) 3 % (0-8); BASOPHILS % (MANUAL) 0 % (0-2); EOSINOPHILS % (MANUAL) 0 % (0-3); LYMPHOCYTES % (MANUAL) 14 % (20-45); NEUTROPHILS % (MANUAL) 76 % (45-75); PLATELET ESTIMATE INCREASED; PLATELET MORPHOLOGY NORMAL; TOTAL CELLS COUNTED 100
--- NOTE | 2016-09-09 11:47 | Pre-Procedure Note/Attestation ---
Pre-Procedure Note/Attestation Complete Prior to Procedure Planned Procedure: left Procedure Narrative: Left foot incision and drainage with debridement of soft tissue and bone and possible transmetatarsal amputation Indications for Procedure Pre-Operative Diagnosis: Left foot infected wound Attestation I attest that I discussed the nature of the procedure; its benefits; risks and complications; and alternatives (and the risks and benefits of such alternatives ), prior to the procedure, with the patient (or the patient's legal solar manufacturer's representative). I attest that, if there was a reasonable possibility of needing a blood transfusion, the patient (or the patient's legal solar manufacturer's representative) was given the [facility] standardized written summary, pursuant to the [place]ynor [place] Blood Safety Act ([place] Health and Safety Code # 1645, as amended). I attest that I re-evaluated the patient just prior to the surgery and that there has been no change in the patient's H&P, except as documented below: Emile Chua DPM Sep 09, 2016 11:47
[2016-09-09] MEDS ORDERED: Bacitracin 50000 Units Vial ONE ×2 (12:28→15:11)
[2016-09-09] MEDS ORDERED: Bupivacaine 0.5% Inj 30 ml vial INJ ONE (12:28)
[2016-09-09] MEDS ORDERED: Lidocaine 1% Plain 30 ml INJ ONE (12:28)
[2016-09-09] MEDS ORDERED: Propofol 10mg/ml 20ml IV ONE (12:51)
[2016-09-09] MEDS ORDERED: Midazolam 2mg/2ml Inj ONE (13:00)
[2016-09-09] MEDS ORDERED: fentaNYL 100 mcg/2 mL IV ONE (13:00)
[2016-09-09] MEDS ORDERED: LR 1000ml ONE (13:00)
[2016-09-09] MEDS ORDERED: Lidocaine 1% MPF 10mg/ml 5ml ONE (13:00)
[2016-09-09] MEDS ORDERED: NS Irrig 1000ml ONE (13:00)
[2016-09-09] MEDS ORDERED: Sterile Water Irrig 1000ml IRRIG ONE (13:00)
[2016-09-09] MEDS ORDERED: NS Irrig 1000ml IRRIG ONE (13:05)
[2016-09-09] MEDS ORDERED: LR 1000ml 1,000 ML IVLG SCH (13:25)
--- NOTE | 2016-09-09 13:25 | Anethesia Preoperative Eval ---
Anesthesia Pre-op PMH/ROS General Date of Evaluation: Sep 09, 2016 Anesthesiologist: Gio ASA Score: ASA 3 Mallampati Score Class I : Soft palate, uvula, fauces, pillars visible Class II: Soft palate, uvula, fauces visible Class III: Soft palate, base of uvula visible Class IV: Only hard plate visible Mallampati Classification: Class II Surgeon: Adrianaar Diagnosis: Left foot wound Surgical Procedure: Left foot I&D, possible transmetatarsal amputation Anesthesia History: none Family History: no anesthesia problems Allergies: Coded Allergies: No Known Allergies (Unverified , 09/04/16) Medications: see eMAR Past Medical History Cardiovascular: Reports: HTN, Denies: CAD, GA, arrhythmia, other, valve dz Pulmonary: Denies: COPD, NITO, asthma, other Gastrointestinal/Genitourinary: Reports: GERD, Denies: CRI, ESRD, other Neurologic/Psychiatric: Denies: CVA, TIA, dementia, depression/anxiety, other Endocrine: Reports: DM - uncontrolled, Denies: hypothyroidism, other, steroids HEENT: Denies: SEMINOLE (L), SEMINOLE (R), cataract (L), cataract (R), glaucoma, other Hematology/Immune: Reports: anemia - chronic, other - sepsis, Denies: DVT, bleeding disorder Musculoskeletal/Integumentary: Denies: DDD, DJD, OA, RA, edema, other PSxH Narrative: Right foot toe amputation Anesthesia Pre-op Phys. Exam Physician Exam Last Vital Signs Date Time Temp Pulse Resp B/P Pulse Ox O2 Delivery O2 Flow Rate FiO2 09/09/16 08:39 122/86 09/09/16 08:00 98.4 99 22 97 Room Air Constitutional: NAD Cardiovascular: RRR Respiratory: CTA Airway Exam Mallampati Score: Class II MO: full ROM: full Teeth: intact Anesthesia Pre-op A/P Labs Hematology Test 09/09/16 08:25 White Blood Count 16.4 K/UL (4.8-10.8) H Red Blood Count 4.05 M/UL (4.20-5.40) L Hemoglobin 11.8 G/DL (12.0-16.0) L Hematocrit 35.6 % (37.0-47.0) L Mean Corpuscular Volume 88 FL (80-99) Mean Corpuscular Hemoglobin 29.1 PG (27.0-31.0) Mean Corpuscular Hemoglobin Concent 33.1 G/DL (32.0-36.0) Red Cell Distribution Width 12.6 % (11.6-14.8) Platelet Count 801 K/UL (150-450) H Mean Platelet Volume 5.9 FL (6.5-10.1) L Neutrophils (%) (Auto) % (45.0-75.0) Lymphocytes (%) (Auto) % (20.0-45.0) Monocytes (%) (Auto) % (1.0-10.0) Eosinophils (%) (Auto) % (0.0-3.0) Basophils (%) (Auto) % (0.0-2.0) Differential Total Cells Counted 100 Neutrophils % (Manual) 76 % (45-75) H Lymphocytes % (Manual) 14 % (20-45) L Monocytes % (Manual) 7 % (1-10) Eosinophils % (Manual) 0 % (0-3) Basophils % (Manual) 0 % (0-2) Band Neutrophils 3 % (0-8) Platelet Estimate Increased H Platelet Morphology Normal Anisocytosis 1+ Chemistry Test 09/09/16 08:25 Sodium Level 135 mEQ/L (135-145) Potassium Level 3.4 mEQ/L (3.4-4.9) Chloride Level 98 mEQ/L (98-107) Carbon Dioxide Level 23 mEQ/L (20-30) Anion Gap 14 (5-15) Blood Urea Nitrogen 9 mg/dL (7-23) Creatinine 0.7 mg/dL (0.5-0.9) Estimat Glomerular Filtration Rate > 60 mL/min (>60) Glucose Level 383 mg/dL (74-106) H Calcium Level 8.5 mg/dL (8.6-10.2) L Studies Pre-op Studies: EKG - sr Risk Assessment & Plan Assessment: ASA IIIE Plan: GA Status Change Before Surgery: No Pre-Antibiotics Drug: Ancef 1g Given Within 1 Hr of Incision: Yes Time Given: 13:08 JORGE CAVANAUGH M.D. Sep 09, 2016 13:25
--- NOTE | 2016-09-09 13:27 | Immediate Post-Op Evaluation ---
Immediate Post-Op Evalulation Immediate Post-Op Evalulation Procedure: Left foot I&D and transmetatarsal amputation Date of Evaluation: Sep 09, 2016 Time of Evaluation: 14:37 IV Fluids: 500 Blood Products: 0 Estimated Blood Loss: 25 Urinary Output: 0 Blood Pressure Systolic: 90 Blood Pressure Diastolic: 60 Pulse Rate: 69 Respiratory Rate: 17 O2 Sat by Pulse Oximetry: 100 Temperature (Fahrenheit): 97.5 Pain Score (1-10): 0 Nausea: No Vomiting: No Complications 0 Patient Status: awake, reacts, patent, none Hydration Status: adequate Drug: Ancef 1g Given Within 1 Hr of Incision: Yes Time Given: 13:08 JORGE CAVANAUGH M.D. Sep 09, 2016 13:27
[2016-09-09] MEDS ORDERED: fentaNYL 100 mcg/2 mL IV PRN (13:30)
[2016-09-09] MEDS ORDERED: DiphenhydrAMINE 50mg/ml Inj IVP PRN (13:30)
[2016-09-09] MEDS ORDERED: Labetalol 5mg/ml 20ml vial IV PRN (13:30)
[2016-09-09] MEDS ORDERED: Hydromorphone 0.5mg/0.5ml inj IVP PRN (13:30)
--- NOTE | 2016-09-09 14:40 | Brief Operative Note ---
Immediate Post Operative Note Operative Note Chief Complaint: Left foot infection Pre-op Diagnosis: Left foot infected wound and osteomyelitis Procedure: 1. Left foot transmetatarsal amputation 2. Left foot bone biopsy of 3rd metatarsal Post-op Diagnosis: Left foot infected wound and osteomyelitis Findings: consistent w/pre-op dx studies Surgeon: Emile Chua Additional Surgeons: Tierney: Dr Rodolfo Charles Anesthesiologist: Dr Hayden Anesthesia: general Specimen: yes Complications: none Condition: stable Estimated Blood Loss: volume - 30cc Drains: none Implant(s) used?: No Emile Chua DPM Sep 09, 2016 14:40
--- NOTE | 2016-09-09 16:55 | Infectious Diseases Prog Note ---
Assessment/Plan Assessment/Plan ASSESSMENT: 61 y/o female with: Chronic left foot ulcer / multifocal fractures, osteomyelitis - WCx GBS.agalactiae, P.vulgaris/penneri, C.diversus, diptheroids, suspect anaerobes - SP TMA 09/09 - bone Cx pending - MRI: Fractures involving the second, third, fourth metatarsal heads and the first distal phalange with associated bone marrow edema, probable superimposed osteomyelitis - elevated ESR, CRP - h/o previous amputations Chronic Diarrhea x 6 mo - negative C.diff. Stool Cx pending Negative HIV Leukocytosis - improved, afebrile PAD DM2 - HbA1c 13% Thrombocytosis NKDA Full Code PLAN: continue IV Vanco, Zosyn d# 4 - will d/w podiatry, if all infected bone excised , will not need IV ABX at DC f/u cultures, stool studies Monitor CBC, temperatures Monitor BMP Wound care Subjective Allergies: Coded Allergies: No Known Allergies (Unverified , 09/04/16) Subjective remains afebrile SP left TMA Objective Vital Signs Last 24 Hour Vital Signs Date Time Temp Pulse Resp B/P Pulse Ox O2 Delivery O2 Flow Rate FiO2 09/09/16 15:25 97.8 84 18 147/94 100 Room Air 09/09/16 15:10 87 16 150/96 100 Nasal Cannula 3.0 09/09/16 14:55 87 17 147/95 100 Nasal Cannula 3.0 09/09/16 14:42 76 19 107/71 100 Simple Mask 6.0 09/09/16 14:37 70 20 99/64 100 Simple Mask 6.0 09/09/16 14:36 69 17 100 09/09/16 14:32 97.5 68 21 90/60 100 Simple Mask 6.0 09/09/16 08:39 122/86 09/09/16 08:00 98.4 99 22 155/88 97 Room Air 09/09/16 04:17 98.1 96 20 122/86 97 Room Air 09/09/16 00:20 97.0 90 20 136/79 99 Room Air 09/08/16 19:00 97.3 92 20 104/64 100 Room Air Height (Feet): 5 Height (Inches): 3.00 Weight (Pounds): 102 General Appearance: no acute distress Respiratory/Chest: no respiratory distress Cardiovascular: normal rate, regular rhythm Abdomen: normal bowel sounds, soft, non tender, non distended Extremities: other - foot bandaged Microbiology Date/Time Source Procedure Growth Status 09/07/16 20:00 Stool Received 09/07/16 10:00 Stool WBC Smear - Final Complete 09/07/16 09:50 Stool Clostridium difficile Toxin Assay - Final Complete 09/08/16 17:35 Foot Left Gram Stain - Final Resulted 09/08/16 17:35 Foot Left Aerobic Culture Pending Resulted 09/08/16 17:35 Foot Left Anaerobic Culture Pending Resulted Laboratory Tests Test 09/09/16 08:25 White Blood Count 16.4 K/UL (4.8-10.8) H Red Blood Count 4.05 M/UL (4.20-5.40) L Hemoglobin 11.8 G/DL (12.0-16.0) L Hematocrit 35.6 % (37.0-47.0) L Mean Corpuscular Volume 88 FL (80-99) Mean Corpuscular Hemoglobin 29.1 PG (27.0-31.0) Mean Corpuscular Hemoglobin Concent 33.1 G/DL (32.0-36.0) Red Cell Distribution Width 12.6 % (11.6-14.8) Platelet Count 801 K/UL (150-450) H Mean Platelet Volume 5.9 FL (6.5-10.1) L Neutrophils (%) (Auto) % (45.0-75.0) Lymphocytes (%) (Auto) % (20.0-45.0) Monocytes (%) (Auto) % (1.0-10.0) Eosinophils (%) (Auto) % (0.0-3.0) Basophils (%) (Auto) % (0.0-2.0) Differential Total Cells Counted 100 Neutrophils % (Manual) 76 % (45-75) H Lymphocytes % (Manual) 14 % (20-45) L Monocytes % (Manual) 7 % (1-10) Eosinophils % (Manual) 0 % (0-3) Basophils % (Manual) 0 % (0-2) Band Neutrophils 3 % (0-8) Platelet Estimate Increased H Platelet Morphology Normal Anisocytosis 1+ Sodium Level 135 mEQ/L (135-145) Potassium Level 3.4 mEQ/L (3.4-4.9) Chloride Level 98 mEQ/L (98-107) Carbon Dioxide Level 23 mEQ/L (20-30) Anion Gap 14 (5-15) Blood Urea Nitrogen 9 mg/dL (7-23) Creatinine 0.7 mg/dL (0.5-0.9) Estimat Glomerular Filtration Rate > 60 mL/min (>60) Glucose Level 383 mg/dL (74-106) H Calcium Level 8.5 mg/dL (8.6-10.2) L Current Medications Medications (Trade) Dose Ordered Sig/Darryl Route PRN Reason Start Time Stop Time Status Last Admin Dose Admin Acetaminophen (Tylenol) 650 mg Q4H PRN ORAL Mild Pain (Pain Scale 1-3) 09/09/16 13:30 09/09/16 18:00 Acetaminophen (Tylenol) 650 mg Q4H PRN ORAL fever 09/04/16 21:30 10/04/16 21:29 Al Hydroxide/Mg Hydroxide (Mylanta II) 30 ml Q6H PRN ORAL dyspepsia 09/04/16 21:30 10/04/16 21:29 09/05/16 21:06 Dextrose (Dextrose 50%) STAT PRN IV Hypoglycemia 09/04/16 21:30 10/04/16 21:29 Diphenhydramine HCl (Benadryl) 25 mg Q15M PRN IVP Itching 09/09/16 13:30 09/09/16 19:00 Fentanyl Citrate (Sublimaze 100 mcg/2 mL) 25 mcg Q10M PRN IV Moderate Pain (Pain Scale 4-6) 09/09/16 13:30 09/09/16 19:00 Heparin Sodium (Porcine) (Heparin 5000 units/ml) 5,000 units EVERY 12 HOURS SUBQ 09/05/16 09:00 10/05/16 08:59 09/08/16 22:20 Hydralazine HCl (Apresoline) 5 mg Q30M PRN IV SBP>160 OR___/DBP>90 OR___ 09/09/16 13:30 09/09/16 19:00 Hydromorphone HCl (Dilaudid) 0.5 mg Q15M PRN IVP Severe Pain (Pain Scale 7-10) 09/09/16 13:30 09/09/16 19:00 09/09/16 15:14 Insulin Aspart (NovoLOG) BEFORE MEALS AND HS SUBQ 09/09/16 11:30 10/09/16 11:29 Insulin Detemir 10 units 10 units Q24H SUBQ 09/06/16 21:00 10/06/16 20:59 09/08/16 22:06 Labetalol HCl (Normodyne) 5 mg Q10M PRN IV SBP>160 or____/ DBP>90 or 09/09/16 13:30 09/09/16 19:00 Lorazepam (Ativan 2mg/ml 1ml) 0.5 mg Q4H PRN IV For Anxiety 09/04/16 21:30 09/11/16 21:29 Losartan Potassium 50 mg 50 mg DAILY ORAL 09/05/16 09:00 10/05/16 08:59 09/06/16 09:54 Morphine Sulfate (Morphine Sulfate) 1 mg EVERY 4 HOURS PRN IVP For Pain 09/04/16 21:30 09/11/16 21:29 09/08/16 14:41 Ondansetron HCl (Zofran) 4 mg Q1H PRN IVP Nausea & Vomiting 09/09/16 13:30 09/09/16 19:00 Ondansetron HCl (Zofran) 4 mg Q6H PRN IVP Nausea & Vomiting 09/04/16 21:30 10/04/16 21:29 Piperacillin Sod/ Tazobactam Sod/ Dextrose (Zosyn/D5W 100ml) 100 ml @ 25 mls/hr EVERY 8 HOURS IVPB 09/06/16 15:00 09/14/16 14:59 09/09/16 04:50 Polyethylene Glycol (Miralax) 17 gm HSPRN PRN ORAL Constipation 09/04/16 21:30 10/04/16 21:29 Sodium Chloride (Sodium Chloride 1000ml bag) 1,000 ml @ 75 mls/hr [id number] IV 09/06/16 23:45 10/06/16 23:44 09/08/16 15:58 Vancomycin HCl (Vanco rx to dose) 1 ea DAILY PRN MISC Per rx protocol 09/04/16 21:30 10/04/16 21:29 Vancomycin HCl 1 gm/Dextrose 250 ml @ 167 mls/hr Q12H IVPB 09/05/16 01:00 09/14/16 00:59 09/09/16 15:59 Zolpidem Tartrate (Ambien) 5 mg HSPRN PRN ORAL Insomnia 09/04/16 21:30 10/04/16 21:29 MARY MITCHELL Sep 09, 2016 16:55
[2016-09-09] MEDS: Morphine Sulfate 2mg/ml Inj IVP PRN ×2 (18:01→22:56)
[2016-09-09] MEDS ORDERED: Tubing Blood Filter IV ONE (18:27)
[2016-09-09] MEDS ORDERED: Tubing IV Secondary IV ONE (18:27)
--- NOTE | 2016-09-09 19:08 | Pulmonology Progress Note ---
Assessment/Plan Problems: (1) Severe sepsis (2) Abscess of left foot including toes (3) Anemia, chronic disease (4) Hyperglycemia due to type 1 diabetes mellitus (5) HTN (hypertension) (6) PVD (peripheral vascular disease) (7) Diabetes mellitus with foot ulcer and gangrene Assessment/Plan iv antibiotics check cultures Podiatry consutl check MRI vascular studies sliding scale Subjective ROS Limited/Unobtainable: No Constitutional: Reports: anorexia, chills, drenching sweats, fatigue, fever Musculoskeletal: Reports: pain, stiffness, swelling Allergies: Coded Allergies: No Known Allergies (Unverified , 09/04/16) Objective Last 24 Hour Vital Signs Date Time Temp Pulse Resp B/P Pulse Ox O2 Delivery O2 Flow Rate FiO2 09/09/16 15:25 97.8 84 18 147/94 100 Room Air 09/09/16 15:10 87 16 150/96 100 Nasal Cannula 3.0 09/09/16 14:55 87 17 147/95 100 Nasal Cannula 3.0 09/09/16 14:42 76 19 107/71 100 Simple Mask 6.0 09/09/16 14:37 70 20 99/64 100 Simple Mask 6.0 09/09/16 14:36 69 17 100 09/09/16 14:32 97.5 68 21 90/60 100 Simple Mask 6.0 09/09/16 08:39 122/86 09/09/16 08:00 98.4 99 22 155/88 97 Room Air 09/09/16 04:17 98.1 96 20 122/86 97 Room Air 09/09/16 00:20 97.0 90 20 136/79 99 Room Air Intake and Output 09/08/16 09/09/16 19:00 07:00 Intake Total 805 ml 620 ml Balance 805 ml 620 ml Intake Oral 480 ml 120 ml IV Total 325 ml 500 ml # Voids 2 4 # Bowel Movements 1 3 General Appearance: no acute distress HEENT: normocephalic, atraumatic, PERRL Respiratory/Chest: chest wall non-tender, decreased breath sounds, accessory muscle use Breasts: no masses Cardiovascular: normal peripheral pulses, normal rate, regular rhythm, no JVD Abdomen: normal bowel sounds, soft, non tender, no organomegaly Genitourinary: normal external genitalia Extremities: no cyanosis Skin: rash, lesions, ulcers Neurologic/Psychiatric: 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 normal, no motor/sensory deficits Microbiology Date/Time Source Procedure Growth Status 09/07/16 20:00 Stool Received 09/07/16 10:00 Stool WBC Smear - Final Complete 09/07/16 09:50 Stool Clostridium difficile Toxin Assay - Final Complete 09/08/16 17:35 Foot Left Gram Stain - Final Resulted 09/08/16 17:35 Foot Left Aerobic Culture Pending Resulted 09/08/16 17:35 Foot Left Anaerobic Culture Pending Resulted Laboratory Tests 09/09/16 08:25: White Blood Count 16.4H, Red Blood Count 4.05L, Hemoglobin 11.8L, Hematocrit 35.6L, Mean Corpuscular Volume 88, Mean Corpuscular Hemoglobin 29.1, Mean Corpuscular Hemoglobin Concent 33.1, Red Cell Distribution Width 12.6, Platelet Count 801H, Mean Platelet Volume 5.9L, Neutrophils (%) (Auto) , Lymphocytes (%) (Auto) , Monocytes (%) (Auto) , Eosinophils (%) (Auto) , Basophils (%) (Auto) , Differential Total Cells Counted 100, Neutrophils % (Manual) 76H, Lymphocytes % (Manual) 14L, Monocytes % (Manual) 7, Eosinophils % (Manual) 0, Basophils % ( Manual) 0, Band Neutrophils 3, Platelet Estimate IncreasedH, Platelet Morphology Normal, Anisocytosis 1+, Sodium Level 135, Potassium Level 3.4, Chloride Level 98, Carbon Dioxide Level 23, Anion Gap 14, Blood Urea Nitrogen 9 , Creatinine 0.7, Estimat Glomerular Filtration Rate > 60, Glucose Level 383H, Calcium Level 8.5L Current Medications Medications (Trade) Dose Ordered Sig/Darryl Route PRN Reason Start Time Stop Time Status Last Admin Dose Admin Acetaminophen (Tylenol) 650 mg Q4H PRN ORAL fever 09/04/16 21:30 10/04/16 21:29 Al Hydroxide/Mg Hydroxide (Mylanta II) 30 ml Q6H PRN ORAL dyspepsia 09/04/16 21:30 10/04/16 21:29 09/05/16 21:06 Dextrose (Dextrose 50%) STAT PRN IV Hypoglycemia 09/04/16 21:30 10/04/16 21:29 Heparin Sodium (Porcine) (Heparin 5000 units/ml) 5,000 units EVERY 12 HOURS SUBQ 09/05/16 09:00 10/05/16 08:59 09/08/16 22:20 Insulin Aspart (NovoLOG) BEFORE MEALS AND HS SUBQ 09/09/16 11:30 10/09/16 11:29 09/09/16 17:18 Insulin Detemir 10 units 10 units Q24H SUBQ 09/06/16 21:00 10/06/16 20:59 09/08/16 22:06 Lorazepam (Ativan 2mg/ml 1ml) 0.5 mg Q4H PRN IV For Anxiety 09/04/16 21:30 09/11/16 21:29 Losartan Potassium 50 mg 50 mg DAILY ORAL 09/05/16 09:00 10/05/16 08:59 09/06/16 09:54 Morphine Sulfate (Morphine Sulfate) 1 mg EVERY 4 HOURS PRN IVP For Pain 09/04/16 21:30 09/11/16 21:29 09/09/16 18:01 Ondansetron HCl (Zofran) 4 mg Q6H PRN IVP Nausea & Vomiting 09/04/16 21:30 10/04/16 21:29 Piperacillin Sod/ Tazobactam Sod/ Dextrose (Zosyn/D5W 100ml) 100 ml @ 25 mls/hr EVERY 8 HOURS IVPB 09/06/16 15:00 09/14/16 14:59 09/09/16 04:50 Polyethylene Glycol (Miralax) 17 gm HSPRN PRN ORAL Constipation 09/04/16 21:30 10/04/16 21:29 Sodium Chloride (Sodium Chloride 1000ml bag) 1,000 ml @ 75 mls/hr [id number] IV 09/06/16 23:45 10/06/16 23:44 09/09/16 17:15 Vancomycin HCl (Vanco rx to dose) 1 ea DAILY PRN MISC Per rx protocol 09/04/16 21:30 10/04/16 21:29 Vancomycin HCl 1 gm/Dextrose 250 ml @ 167 mls/hr Q12H IVPB 09/05/16 01:00 09/14/16 00:59 09/09/16 15:59 Zolpidem Tartrate (Ambien) 5 mg HSPRN PRN ORAL Insomnia 09/04/16 21:30 10/04/16 21:29 NYLA MORIN Sep 09, 2016 19:08
[2016-09-09] MEDS: Levemir Flexpen SUBQ SCH (21:07)
[2016-09-10] VITALS: BP 133/81
[2016-09-10] MEDS: Vancomycin 1gm/D5W 250ml IVPB SCH ×4 (01:11→11:36)
[2016-09-10 04:00] VITALS: BP 127/81
--- NOTE | 2016-09-10 04:37 | Operative Note - Dictated ---
PREOPERATIVE DIAGNOSES: Left foot infected wound and osteomyelitis. POSTOPERATIVE DIAGNOSES: Left foot infected wound and osteomyelitis. PROCEDURE: 1. Left foot transmetatarsal amputation. 2. Left foot bone biopsy of third metatarsal. FINDINGS: Purulence with necrotic soft tissue and bone. SURGEON: Emile Chua DPM. ADDITIONAL SURGEONS: Proctoring: Rodolfo Charles DPM. ANESTHESIOLOGIST: Dr. Hayden. ANESTHESIA: General. SPECIMEN: Left forefoot, bone from left foot third metatarsal. COMPLICATIONS: None. CONDITION: Stable. ESTIMATED BLOOD LOSS: Approximately 30 mL. DRAINS: None. DESCRIPTION OF PROCEDURE: The patient was brought into the operating room and was assisted onto the operating table in supine position. General anesthesia was administered. A time-out was performed. The foot was then prepped and draped in the usual aseptic manner. No tourniquet was utilized during the procedure. The tips of the toes were noted to be gangrenous. The third toe had a wound that probed the bone and the third metatarsal head. At this point, a fish-mouth incision was created and a transmetatarsal amputation was performed. All necrotic and nonviable soft tissue and bone was dissected out. The area was then irrigated with pulse lavage using triple antibiotic solution. A slice of bone was taken from the third metatarsal to be sent for pathological analysis. Deep cultures were taken at this time as well. A superficial layer of skin on the plantar foot was exfoliating with slight hyperpigmentation noted. Previously used instruments were placed aside and new instrumentation and gloves were used and the area was utilized to close the wound starting with a deeper layer using 3-0 and 2-0 Vicryl. The skin was reapproximated using skin staple. The incision was covered with Adaptic, 4 x 4 gauze, Kerlix, and Renato wrap. The patient tolerated the procedure and anesthesia well without any complication. She was then transferred to the postoperative care unit with vital signs stable. After a period of observation, the patient was transported back to her room. Emile Chua DPM DR: Makeda JOB#: [id number] CC: EBER
[2016-09-10] MEDS: NovoLOG Insulin Flexpen SUBQ SCH ×4 (06:28→21:00)
[2016-09-10 07:57] VITALS: BP 141/83
[2016-09-10] MEDS: Losartan 50mg tab ORAL SCH (08:52)
[2016-09-10] MEDS: Heparin 5000 units/ml inj SUBQ SCH ×2 (08:52→20:58)
[2016-09-10 11:35] VITALS: BP 159/93
--- NOTE | 2016-09-10 12:21 | 48 Hour Post Anesthesia Eval ---
Post Anesthesia Evaluation Procedure: Left foot I&D and transmetatarsal amputation Date of Evaluation: Sep 10, 2016 Time of Evaluation: 12:20 Blood Pressure Systolic: 148 0: 74 Pulse Rate: 76 Respiratory Rate: 20 Temperature (Fahrenheit): 97.6 O2 Sat by Pulse Oximetry: 98 Airway: patent Nausea: No Vomiting: No Pain Intensity: 2 Hydration Status: adequate Cardiopulmonary Status: stable Mental Status/LOC: patient returned to baseline Follow-up Care/Observations: n/a Post-Anesthesia Complications: none Follow-up care needed: N/A MARCELLA OLMSTEAD M.D. Sep 10, 2016 12:21
[2016-09-10 16:00] VITALS: BP 118/65
[2016-09-10 19:00] VITALS: BP 114/66
--- NOTE | 2016-09-10 19:20 | Pulmonology Progress Note ---
Assessment/Plan Problems: (1) Severe sepsis (2) Abscess of left foot including toes (3) Anemia, chronic disease (4) Hyperglycemia due to type 1 diabetes mellitus (5) HTN (hypertension) (6) PVD (peripheral vascular disease) (7) Diabetes mellitus with foot ulcer and gangrene Assessment/Plan iv antibiotics check cultures Podiatry consutl check MRI vascular studies sliding scale Subjective ROS Limited/Unobtainable: No Constitutional: Reports: anorexia, chills, drenching sweats, fatigue, fever Musculoskeletal: Reports: pain, stiffness, swelling Allergies: Coded Allergies: No Known Allergies (Unverified , 09/04/16) Objective Last 24 Hour Vital Signs Date Time Temp Pulse Resp B/P Pulse Ox O2 Delivery O2 Flow Rate FiO2 09/10/16 16:00 96.8 93 20 118/65 97 Room Air 09/10/16 12:21 76 20 98 09/10/16 11:35 97.9 102 18 159/93 98 Room Air 09/10/16 08:52 141/83 09/10/16 07:57 96.8 99 18 141/83 98 Room Air 09/10/16 04:00 98.1 96 18 127/81 98 Room Air 09/10/16 00:00 97.3 93 20 133/81 98 Room Air 09/09/16 20:00 98.1 92 20 114/85 99 Room Air Intake and Output 09/09/16 09/10/16 19:00 07:00 Intake Total 875 ml 1080 ml Output Total 25 ml Balance 850 ml 1080 ml Intake Oral 470 ml IV Total 875 ml 610 ml Estimated Blood Loss 25 ml # Voids 4 # Bowel Movements 2 3 General Appearance: no acute distress HEENT: normocephalic, atraumatic, PERRL Respiratory/Chest: chest wall non-tender, lungs clear, normal breath sounds, no respiratory distress Breasts: no masses Cardiovascular: normal peripheral pulses, normal rate, regular rhythm, no gallop/murmur, no JVD Abdomen: normal bowel sounds, soft, non tender, no organomegaly, non distended Genitourinary: normal external genitalia Extremities: no cyanosis Skin: no rash, no lesions Neurologic/Psychiatric: 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 Resulted 09/09/16 13:43 Foot Left Gram Stain - Final Resulted 09/09/16 13:43 Foot Left Aerobic Culture - Preliminary NO GROWTH Resulted 09/09/16 13:43 Foot Left Anaerobic Culture Pending Resulted 09/08/16 17:35 Foot Left Gram Stain - Final Resulted 09/08/16 17:35 Foot Left Aerobic Culture - Preliminary Resulted 09/08/16 17:35 Foot Left Anaerobic Culture Pending Resulted Current Medications Medications (Trade) Dose Ordered Sig/Darryl Route PRN Reason Start Time Stop Time Status Last Admin Dose Admin Acetaminophen (Tylenol) 650 mg Q4H PRN ORAL fever 09/04/16 21:30 10/04/16 21:29 Al Hydroxide/Mg Hydroxide (Mylanta II) 30 ml Q6H PRN ORAL dyspepsia 09/04/16 21:30 10/04/16 21:29 09/05/16 21:06 Dextrose (Dextrose 50%) STAT PRN IV Hypoglycemia 09/04/16 21:30 10/04/16 21:29 Heparin Sodium (Porcine) (Heparin 5000 units/ml) 5,000 units EVERY 12 HOURS SUBQ 09/05/16 09:00 10/05/16 08:59 09/10/16 08:52 Insulin Aspart BEFORE MEALS AND HS SUBQ 09/09/16 11:30 10/09/16 11:29 09/10/16 18:10 Insulin Detemir 10 units 10 units Q24H SUBQ 09/06/16 21:00 10/06/16 20:59 09/09/16 21:07 Lorazepam (Ativan 2mg/ml 1ml) 0.5 mg Q4H PRN IV For Anxiety 09/04/16 21:30 09/11/16 21:29 Losartan Potassium 50 mg 50 mg DAILY ORAL 09/05/16 09:00 10/05/16 08:59 09/10/16 08:52 Morphine Sulfate (Morphine Sulfate) 1 mg EVERY 4 HOURS PRN IVP For Pain 09/04/16 21:30 09/11/16 21:29 09/09/16 22:56 Ondansetron HCl (Zofran) 4 mg Q6H PRN IVP Nausea & Vomiting 09/04/16 21:30 10/04/16 21:29 Piperacillin Sod/ Tazobactam Sod/ Dextrose (Zosyn/D5W 100ml) 100 ml @ 25 mls/hr EVERY 8 HOURS IVPB 09/06/16 15:00 09/14/16 14:59 09/10/16 12:36 Polyethylene Glycol (Miralax) 17 gm HSPRN PRN ORAL Constipation 09/04/16 21:30 10/04/16 21:29 Sodium Chloride (Sodium Chloride 1000ml bag) 1,000 ml @ 75 mls/hr [id number] IV 09/06/16 23:45 10/06/16 23:44 09/10/16 08:53 Vancomycin HCl (Vanco rx to dose) 1 ea DAILY PRN MISC Per rx protocol 09/04/16 21:30 10/04/16 21:29 Vancomycin HCl/ Dextrose (Vancomycin/D5W 250ml) 250 ml @ 167 mls/hr Q12HR@0100,1300 IVPB 09/11/16 01:00 09/16/16 00:59 Zolpidem Tartrate (Ambien) 5 mg HSPRN PRN ORAL Insomnia 09/04/16 21:30 10/04/16 21:29 NYLA MORIN Sep 10, 2016 19:20
[2016-09-10] MEDS: Levemir Flexpen SUBQ SCH (20:59)
--- NOTE | 2016-09-10 22:25 | Podiatric Progress Note ---
Assessment/Plan Patient Bibiana Betancourt is a 61 year old female who was admitted on Sep 04, 2016 at 20:45 with sepsis and left foot infected wound Problems: (1) Diabetic foot infection (2) Diabetic foot ulcer (3) Osteomyelitis of ankle or foot (4) Cellulitis Assessment/Plan Left foot infected ulcer and osteomyelitis. 1 days status post TMA. Patient is doing well. However, the central portion of the plantar distal aspect of the TMA stump appears dusky - Will continue to follow patient daily - Non weight bearing left foot - Keep dressings clean, dry, and in tact - Continue antibiotics per infectious disease specialist recommendations - Patient will benefit from SNF placement Subjective Day of Surgery: 08/09/17 Reason for consult Left foot infected ulcer and osteomyelitis Procedure Performed Left foot transmetatarsal amputation Allergies: Coded Allergies: No Known Allergies (Unverified , 09/04/16) Subjective Patient states no pain, nausea, vomiting, fevers, or chills Objective Exam Last 24 Hour Vital Signs Date Time Temp Pulse Resp B/P Pulse Ox O2 Delivery O2 Flow Rate FiO2 09/10/16 19:00 97.5 85 20 114/66 100 Room Air 09/10/16 16:00 96.8 93 20 118/65 97 Room Air 09/10/16 12:21 76 20 98 09/10/16 11:35 97.9 102 18 159/93 98 Room Air 09/10/16 08:52 141/83 09/10/16 07:57 96.8 99 18 141/83 98 Room Air 09/10/16 04:00 98.1 96 18 127/81 98 Room Air 09/10/16 00:00 97.3 93 20 133/81 98 Room Air Microbiology Date/Time Source Procedure Growth Status 09/04/16 21:42 Blood Blood Culture - Final NO GROWTH AFTER 5 DAYS Complete 09/05/16 08:11 Nasal Nares MRSA Culture - Final NO METHICILLIN RESISTANT STAPH AUREUS... Complete 09/07/16 20:00 Stool Stool Culture - Preliminary NO SALMONELLA,SHIGELLA OR CAMPYLOBACT... Resulted 09/09/16 13:43 Foot Left Gram Stain - Final Resulted 09/09/16 13:43 Foot Left Aerobic Culture - Preliminary NO GROWTH Resulted 09/09/16 13:43 Foot Left Anaerobic Culture Pending Resulted Exam Narrative Left foot transmetatarsal stump with sherry in tact. The central portion of the plantar distal aspect of the TMA stump site with a dusky appearance. No drainage noted. However, the patient's bed sheets were wet as well as the dressings. Dermatological Wound Assessment : Exudate Amount: None Emile Chua DPM Sep 10, 2016 22:25
[2016-09-11] VITALS: BP 135/79
[2016-09-11 04:43] VITALS: BP 146/85
[2016-09-11] MEDS: NovoLOG Insulin Flexpen SUBQ SCH ×3 (05:42→18:03)
[2016-09-11] MEDS: Mylanta II UD 30ml ORAL PRN (06:00)
[2016-09-11 08:00] VITALS: BP 114/65
[2016-09-11] MEDS: Losartan 50mg tab ORAL SCH (10:27)
[2016-09-11] MEDS: Heparin 5000 units/ml inj SUBQ SCH (10:31)
[2016-09-11] MEDS: Morphine Sulfate 2mg/ml Inj IVP PRN (10:40)
[2016-09-11 12:00] VITALS: BP 145/75
--- NOTE | 2016-09-11 14:24 | Infectious Diseases Prog Note ---
Assessment/Plan Assessment/Plan ASSESSMENT: 61 y/o female with: Chronic left foot ulcer / multifocal fractures, osteomyelitis - WCx GBS.agalactiae, P.vulgaris/penneri, C.diversus, diptheroids, suspect anaerobes - SP TMA 09/09 - bone Cx GNR, Strep, path pending - MRI: Fractures involving the second, third, fourth metatarsal heads and the first distal phalange with associated bone marrow edema, probable superimposed osteomyelitis - elevated ESR, CRP - h/o previous amputations Chronic Diarrhea x 6 mo - negative C.diff. Stool Cx(-) Negative HIV Leukocytosis - improved, afebrile. No repeat CBC PAD DM2 - HbA1c 13% Thrombocytosis NKDA Full Code PLAN: DC planning for IV Vanco, invanz ABX d# [id number]. Will need 6 weeks total if positive margins, 2 weeks if negative margins f/u cultures Monitor CBC, temperatures Monitor BMP Wound care d/w Dr. Flores Subjective Allergies: Coded Allergies: No Known Allergies (Unverified , 09/04/16) Subjective remains afebrile path pending Objective Vital Signs Last 24 Hour Vital Signs Date Time Temp Pulse Resp B/P Pulse Ox O2 Delivery O2 Flow Rate FiO2 09/11/16 12:00 96.5 91 18 145/75 98 Room Air 09/11/16 10:27 114/65 09/11/16 08:00 96.8 85 18 114/65 98 Room Air 09/11/16 04:43 97.7 92 19 146/85 96 Room Air 09/11/16 00:00 97.7 88 20 135/79 97 Room Air 09/10/16 19:00 97.5 85 20 114/66 100 Room Air 09/10/16 16:00 96.8 93 20 118/65 97 Room Air Height (Feet): 5 Height (Inches): 3.00 Weight (Pounds): 102 General Appearance: no acute distress Respiratory/Chest: no respiratory distress Cardiovascular: normal rate, regular rhythm Abdomen: normal bowel sounds, soft, non tender, non distended Extremities: other - foot bandaged Microbiology Date/Time Source Procedure Growth Status 09/09/16 13:43 Foot Left Gram Stain - Final Resulted 09/09/16 13:43 Aerobic Culture - Preliminary Streptococcus Species Resulted 09/09/16 13:43 Foot Left Anaerobic Culture - Preliminary Resulted 09/08/16 17:35 Foot Left Gram Stain - Final Resulted 09/08/16 17:35 Aerobic Culture - Preliminary Gram Negative Bacillus 1 Resulted 09/08/16 17:35 Foot Left Anaerobic Culture - Preliminary Resulted Current Medications Medications (Trade) Dose Ordered Sig/Darryl Route PRN Reason Start Time Stop Time Status Last Admin Dose Admin Acetaminophen (Tylenol) 650 mg Q4H PRN ORAL fever 09/04/16 21:30 10/04/16 21:29 Al Hydroxide/Mg Hydroxide (Mylanta II) 30 ml Q6H PRN ORAL dyspepsia 09/04/16 21:30 10/04/16 21:29 09/11/16 06:00 Clotrimazole (Lotrimin) 1 applic EVERY 12 HOURS TOPIC 09/11/16 09:00 10/11/16 08:59 09/11/16 10:27 Dextrose (Dextrose 50%) STAT PRN IV Hypoglycemia 09/04/16 21:30 10/04/16 21:29 Heparin Sodium (Porcine) (Heparin 5000 units/ml) 5,000 units EVERY 12 HOURS SUBQ 09/05/16 09:00 10/05/16 08:59 09/11/16 10:31 Insulin Aspart BEFORE MEALS AND HS SUBQ 09/09/16 11:30 10/09/16 11:29 09/11/16 13:01 Insulin Detemir 10 units 10 units Q24H SUBQ 09/06/16 21:00 10/06/16 20:59 09/10/16 20:59 Lorazepam (Ativan 2mg/ml 1ml) 0.5 mg Q4H PRN IV For Anxiety 09/04/16 21:30 09/11/16 21:29 Losartan Potassium 50 mg 50 mg DAILY ORAL 09/05/16 09:00 10/05/16 08:59 09/11/16 10:27 Morphine Sulfate (Morphine Sulfate) 1 mg EVERY 4 HOURS PRN IVP For Pain 09/04/16 21:30 09/11/16 21:29 09/11/16 10:40 Ondansetron HCl (Zofran) 4 mg Q6H PRN IVP Nausea & Vomiting 09/04/16 21:30 10/04/16 21:29 Piperacillin Sod/ Tazobactam Sod/ Dextrose (Zosyn/D5W 100ml) 100 ml @ 25 mls/hr EVERY 8 HOURS IVPB 09/06/16 15:00 09/14/16 14:59 09/11/16 05:41 Polyethylene Glycol (Miralax) 17 gm HSPRN PRN ORAL Constipation 09/04/16 21:30 10/04/16 21:29 Sodium Chloride (Sodium Chloride 1000ml bag) 1,000 ml @ 75 mls/hr [id number] IV 09/06/16 23:45 10/06/16 23:44 09/11/16 10:27 Vancomycin HCl (Vanco rx to dose) 1 ea DAILY PRN MISC Per rx protocol 09/04/16 21:30 10/04/16 21:29 Vancomycin HCl/ Dextrose (Vancomycin/D5W 250ml) 250 ml @ 167 mls/hr Q12HR@0100,1300 IVPB 09/11/16 01:00 09/16/16 00:59 09/11/16 02:25 Zolpidem Tartrate (Ambien) 5 mg HSPRN PRN ORAL Insomnia 09/04/16 21:30 10/04/16 21:29 MARY MITCHELL Sep 11, 2016 14:24
[2016-09-11 15:33] VITALS: BP 125/72
--- NOTE | 2016-09-11 16:55 | Pulmonology Progress Note ---
Assessment/Plan Problems: (1) Severe sepsis (2) Abscess of left foot including toes (3) Anemia, chronic disease (4) Hyperglycemia due to type 1 diabetes mellitus (5) HTN (hypertension) (6) PVD (peripheral vascular disease) (7) Diabetes mellitus with foot ulcer and gangrene Assessment/Plan iv antibiotics check cultures Podiatry consutl check MRI vascular studies sliding scale Subjective ROS Limited/Unobtainable: No Constitutional: Reports: chills, fatigue, fever Musculoskeletal: Reports: pain, stiffness, swelling Allergies: Coded Allergies: No Known Allergies (Unverified , 09/04/16) Objective Last 24 Hour Vital Signs Date Time Temp Pulse Resp B/P Pulse Ox O2 Delivery O2 Flow Rate FiO2 09/11/16 15:33 97.2 92 20 125/72 99 Room Air 09/11/16 12:00 96.5 91 18 145/75 98 Room Air 09/11/16 10:27 114/65 09/11/16 08:00 96.8 85 18 114/65 98 Room Air 09/11/16 04:43 97.7 92 19 146/85 96 Room Air 09/11/16 00:00 97.7 88 20 135/79 97 Room Air 09/10/16 19:00 97.5 85 20 114/66 100 Room Air Intake and Output 09/10/16 09/11/16 19:00 07:00 Intake Total 1625 ml 1425 ml Balance 1625 ml 1425 ml Intake Oral 800 ml 850 ml IV Total 825 ml 575 ml # Voids 4 7 # Bowel Movements 3 4 General Appearance: no acute distress HEENT: normocephalic, atraumatic, PERRL Respiratory/Chest: chest wall non-tender, lungs clear, normal breath sounds Breasts: no masses Cardiovascular: normal peripheral pulses, normal rate, regular rhythm, no JVD Abdomen: normal bowel sounds, soft, non tender, no organomegaly Genitourinary: normal external genitalia Extremities: no cyanosis Skin: rash, lesions, ulcers Neurologic/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: 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, no motor/sensory deficits Microbiology Date/Time Source Procedure Growth Status 09/09/16 13:43 Foot Left Gram Stain - Final Resulted 09/09/16 13:43 Aerobic Culture - Preliminary Streptococcus Species Resulted 09/09/16 13:43 Foot Left Anaerobic Culture - Preliminary Resulted 1/10/17 17:35 Foot Left Gram Stain - Final Resulted 09/08/16 17:35 Aerobic Culture - Preliminary Gram Negative Bacillus 1 Resulted 09/08/16 17:35 Foot Left Anaerobic Culture - Preliminary Resulted Current Medications Medications (Trade) Dose Ordered Sig/Darryl Route PRN Reason Start Time Stop Time Status Last Admin Dose Admin Acetaminophen (Tylenol) 650 mg Q4H PRN ORAL fever 09/04/16 21:30 10/04/16 21:29 Al Hydroxide/Mg Hydroxide (Mylanta II) 30 ml Q6H PRN ORAL dyspepsia 09/04/16 21:30 10/04/16 21:29 09/11/16 06:00 Clotrimazole (Lotrimin) 1 applic EVERY 12 HOURS TOPIC 09/11/16 09:00 10/11/16 08:59 09/11/16 10:27 Dextrose (Dextrose 50%) STAT PRN IV Hypoglycemia 09/04/16 21:30 10/04/16 21:29 Heparin Sodium (Porcine) (Heparin 5000 units/ml) 5,000 units EVERY 12 HOURS SUBQ 09/05/16 09:00 10/05/16 08:59 09/11/16 10:31 Insulin Aspart BEFORE MEALS AND HS SUBQ 09/09/16 11:30 10/09/16 11:29 09/11/16 13:01 Insulin Detemir 10 units 10 units Q24H SUBQ 09/06/16 21:00 10/06/16 20:59 09/10/16 20:59 Lorazepam (Ativan 2mg/ml 1ml) 0.5 mg Q4H PRN IV For Anxiety 09/04/16 21:30 09/11/16 21:29 Losartan Potassium 50 mg 50 mg DAILY ORAL 09/05/16 09:00 10/05/16 08:59 09/11/16 10:27 Morphine Sulfate (Morphine Sulfate) 1 mg EVERY 4 HOURS PRN IVP For Pain 09/04/16 21:30 09/11/16 21:29 09/11/16 10:40 Ondansetron HCl (Zofran) 4 mg Q6H PRN IVP Nausea & Vomiting 09/04/16 21:30 10/04/16 21:29 Piperacillin Sod/ Tazobactam Sod/ Dextrose (Zosyn/D5W 100ml) 100 ml @ 25 mls/hr EVERY 8 HOURS IVPB 09/06/16 15:00 09/14/16 14:59 09/11/16 15:20 Polyethylene Glycol (Miralax) 17 gm HSPRN PRN ORAL Constipation 09/04/16 21:30 10/04/16 21:29 Sodium Chloride (Sodium Chloride 1000ml bag) 1,000 ml @ 75 mls/hr [id number] IV 09/06/16 23:45 10/06/16 23:44 09/11/16 10:27 Vancomycin HCl (Vanco rx to dose) 1 ea DAILY PRN MISC Per rx protocol 09/04/16 21:30 10/04/16 21:29 Vancomycin HCl/ Dextrose (Vancomycin/D5W 250ml) 250 ml @ 167 mls/hr Q12HR@0100,1300 IVPB 09/11/16 01:00 09/16/16 00:59 09/11/16 16:01 Zolpidem Tartrate (Ambien) 5 mg HSPRN PRN ORAL Insomnia 09/04/16 21:30 10/04/16 21:29 NYLA MORIN Sep 11, 2016 16:55
[2016-09-11] MEDS ORDERED: NS 275ml ONE (17:45)
[2016-09-11] MEDS ORDERED: Tubing IV Secondary IV ONE (18:19)
[2016-09-11] MEDS ORDERED: INVANZ1 GM IVPB (19:14)
[2016-09-11] MEDS ORDERED: VANCOMYCIN1 GM/2502 IVPB ×2 (19:15→19:19)
[2016-09-11 20:00] VITALS: BP 139/89
--- NOTE | 2016-09-11 21:46 | Podiatric Progress Note ---
Assessment/Plan Patient Bibiana Betancourt is a 61 year old female who was admitted on Sep 04, 2016 at 20:45 with sepsis and left foot abscess Problems: (1) Abscess of left foot including toes (2) Diabetes mellitus with foot ulcer and gangrene (3) Cellulitis (4) Diabetic foot ulcer (5) Osteomyelitis of ankle or foot (6) Diabetic foot infection Assessment/Plan - Continue daily dressing changes using adaptic, betadine moistened gauze, dry gauze, kerlix, and amy wrap - Continue IV antibiotics - Awaiting final pathology results - Non weight bearing left foot - Okay to discharge to [facility] Subjective Day of Surgery: 09/09/15 Reason for consult Left foot infected ulcer and osteomyelitis Procedure Performed Left foot transmetatarsal amputation Allergies: Coded Allergies: No Known Allergies (Unverified , 09/04/16) Subjective Patient states she is doing well with no pain, nausea, vomiting, fevers, or chills Objective Exam Last 24 Hour Vital Signs Date Time Temp Pulse Resp B/P Pulse Ox O2 Delivery O2 Flow Rate FiO2 09/11/16 20:00 98.7 87 20 139/89 97 Room Air 09/11/16 15:33 97.2 92 20 125/72 99 Room Air 09/11/16 12:00 96.5 91 18 145/75 98 Room Air 09/11/16 10:27 114/65 09/11/16 08:00 96.8 85 18 114/65 98 Room Air 09/11/16 04:43 97.7 92 19 146/85 96 Room Air 09/11/16 00:00 97.7 88 20 135/79 97 Room Air Microbiology Date/Time Source Procedure Growth Status 09/04/16 21:42 Blood Blood Culture - Final NO GROWTH AFTER 5 DAYS Complete 09/05/16 08:11 Nasal Nares MRSA Culture - Final NO METHICILLIN RESISTANT STAPH AUREUS... Complete 09/07/16 20:00 Stool Stool Culture - Preliminary NORMAL FECAL CECILE. Resulted 09/09/16 13:43 Foot Left Gram Stain - Final Resulted 09/09/16 13:43 Aerobic Culture - Preliminary Streptococcus Species Resulted 09/09/16 13:43 Foot Left Anaerobic Culture - Preliminary Resulted Exam Narrative Incision site is well coapted with sherry in tact. There in increased hyperpigmentation noted at the central portion of the plantar skin. Dermatological Wound Assessment : Exudate Amount: None Emile Chua DPM Sep 11, 2016 21:46
--- NOTE | 2016-09-15 10:27 | Discharge Summary ---
Discharge Summary Hospital Course Date of Admission Sep 04, 2016 at 20:45 Date of Discharge Sep 11, 2016 at 22:00 Admitting Diagnosis left foot infection,sepsis HPI Bibiana Betancourt is a 61 year old female who was admitted on Sep 04, 2016 at 20:45 for Left Foot Infection Sepsis Hospital Course dc summary dictated # [id number] Discharge Medications Continued Medications: Ertapenem Sodium* (INVanz*) 1 Gm Vial.port 1 GM IVPB Q24H for 35 Days, #35 VIAL INVANZ 1 GM EVERY 24 HOURS FOR 5 WEEKS Gabapentin (Neurontin) 300 Mg Capsule 300 MG ORAL THREE TIMES A DAY, #15 CAP 0 Refills Insulin Glargine (Lantus) 100 Unit/1 Ml Insuln.pen 0 SUBQ BEDTIME, #1 EA 0 Refills Losartan Potassium* (Losartan Potassium*) 50 Mg Tablet 50 MG ORAL DAILY, TAB Metformin Hcl* (Metformin Hcl*) 500 Mg Tablet 500 MG ORAL TWICE A DAY, TAB Vancomycin Hcl/D5w (Vancomycin-D5w 1 G/250 Ml) 1 Gm/250 Ml Plast..bag 1.25 GM IVPB Q12HR for 35 Days, #70 BAG VANCOMYCIN 1.25 GM EVERY 12 HOURS FOR 5 WEEKS Discharge Condition Upon Discharge: stable Discharge Disposition Patient was discharged to SNF/Subacute Facility(03) Discharge Diagnoses: Neal (Princess)Rhonda NP Sep 15, 2016 10:27
--- NOTE | 2016-09-16 02:28 | Discharge Summary 2 SIG ---
DATE OF ADMISSION: 09/04/2016 DATE OF DISCHARGE: 09/11/2016 REASON FOR HOSPITALIZATION: 61-year-old female, presented with three weeks of nonhealing left foot wound and left foot pain. Left foot wound developed after accidental slip and fall. The patient has underlying history of diabetes and history of recent right great toe amputation in November 2015. At baseline she ambulated with a walker after surgery. She slipped and fall and injured her left foot. Her wound was not healing. The patient was able to ambulate with walker. The patient had seen prior at [facility], however per patient nothing was done. Then, she followed up with her new primary care provider and started on oral antibiotic without much success. Primary medical doctor recommended her to come to emergency room for evaluation. Evaluation in emergency department revealed severe leukocytosis of 31. The patient was afebrile. Lactic acid was within normal limits. The patient was started on IV fluid resuscitation. Septic workup initiated. The patient was started on empiric antibiotics. In addition, the patient exhibited evidence of acute hyponatremia with sodium 126, which resolved after intravenous resuscitation and hypokalemia with potassium of 3.2. ADMITTING DIAGNOSES: 1. Sepsis. 2. Leukocytosis. 3. Left foot ulcer. 4. Possible cellulitis. 5. Possible osteomyelitis. 6. Diabetes, out of control. 7. Peripheral vascular disease. 8. Chronic diarrhea. 9. Acute hyponatremia. 10. Hypokalemia. 11. History of hypertension. 12. Anemia of chronic disease. 13. Cachexia. SHORT HOSPITAL STAY: The patient was admitted to Med/Surg floor. ID consult and Podiatry consults were requested. Initial x-ray of the right foot revealed trauma versus infection of the left foot with differential included subacute fractures with adjacent bone loss secondary to hyperemia as well as osteolytic defect suspected in the area of the first distal phalanx and the fourth distal phalanx which was suspicious for osteomyelitis. Subsequently, an MRI of the foot was ordered, which revealed multiple fractures involving the second, third, and fourth metatarsal head and the first distal phalanx with associated bone marrow edema, a suspicion of superimposed osteomyelitis given the extent of soft tissue involvement, presence of ulceration at least in one location, bone marrow edema of the second proximal phalanx, and soft tissue. Venous duplex of bilateral lower extremities revealed patent deep venous system bilaterally. Arterial duplex of bilateral lower extremities revealed no evidence of stenosis or occlusion in common femoral, superficial femoral, and popliteal arteries, as well as the mild stenosis of 20% in distal posterior tibial artery. Upon admission, blood sugar was high of 327 and hemoglobin A1c- 13. The patient was started on medical management of diabetes with Levemir and sliding scale of insulin as needed. Patient likely will need further optimization of blood sugar regimen as outpatient. Blood cultures were negative. Wound culture revealed initially Proteus , Acinetobacter, and Strep group B. Repeated wound culture revealed Proteus Acinetobacter, and Staphylococcus aureus, and subsequent repeated culture revealed Strep group B. According to Infectious Disease doctor, the patient need to be on a total of six weeks of antibiotic for osteomyelitis. Leukocytosis trending down. The patient was afebrile from the admission. CRP - elevated at 9.1. ESR elevated at 130. WBC down to 16.4 from initial of 31. ID cleared for discharge to half-way facility. Podiatry seen the patient and recommended nonweightbearing, wound care, and antibiotic regimen as per ID. Blood pressure was managed with the ARB and was stable. Pain management provided . Bowel regimen instituted. PT/OT evaluation and treatment were done. Hemoglobin and hematocrit were closely monitored. The patient status post transfusion of one unit of packed red blood cells. Needs close monitoring of hemoglobin and hematocrit in the half-way facility. Electrolyte imbalance, resolved. The patient initially with hyponatremia, which is likely depletional, because it has resolved after IV fluids. Potassium replaced and stable. Chronic diarrhea for six months - intermittent ; stool for C. difficile was negative. Stool culture was negative. HIV status was negative. 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 The patient was stable for transfer to half-way facility for IV antibiotics as outlined by Infectious Disease doctor and wound care as outlined by first coat sander. FINAL DIAGNOSES: 1. Sepsis. 2. Diabetic left foot ulcer. 3. Left foot cellulitis. 4. Left foot osteomyelitis. 5. Diabetes, out of control. 6. Chronic diarrhea. 7. Electrolyte imbalance (hyponatremia and hypokalemia), resolved. 8. Hypertension. 9. Anemia of chronic disease, status post transfusion of one unit packed red blood cell . DISCHARGE MEDICATIONS: See medication reconciliation list. DISCHARGE INSTRUCTIONS: The patient was discharged to half-way facility for IV antibiotics and wound care. FOLLOWUP: Followup with medical doctor at the facility. Rebeka Flores M.D. Rhonda De Jesus N.P. ([place]) DR: HUONG JOB#: [id number] CC: EBER
--- NOTE | 2016-09-24 15:32 | Diagnostic Imaging Report ---
APPROVED REPORT CPT Code: 92106 Symptoms Claudication : Bilaterally Non-healing Ulcer : Bilaterally BILATERAL LEG: Common femoral artery waveform analysis is within normal limits at rest. Color flow duplex sonography reveals diffuse plaque throughout the commong femoral, superficial femoral and popliteal arteries. There is no evidence of stenosis or occlusion within these segments. The distal posterior tibial and dorsalis pedis arteries are also mildly calcified. A mild stenosis (20%) is seen in the distal posterior tibial arteries bilaterally. There is no evidence of occlusion within these segments. However, Doppler tibial artery waveform analysis is compatible with mild ischemia at rest bilaterally.
== END 2016-09-11 22:00 | DRG 710 ==
LOC: EMR 19:28 → 4W 20:45 → UNDOADMIN 20:45 → EDBEDREQ 20:49 → EDBEDREQSVC 23:29 → EDBEDREQTM 09-05 03:55 → EDBEDREQSVC 09-05 07:07 → EDBEDREQ 09-05 08:50 → 4W 09-06 17:04
PROC: 30233N1 Transfusion of Nonautologous Red Blood Cells into Peripheral Vein, Percutaneous Approach (ICD-10-PCS; 2016-09-08)
PROC: 0Y6N0ZB Detachment at Left Foot, Partial 2nd Ray, Open Approach (ICD-10-PCS; 2016-09-09)
PROC: 0Y6N0ZC Detachment at Left Foot, Partial 3rd Ray, Open Approach (ICD-10-PCS; 2016-09-09)
PROC: 0Y6N0ZD Detachment at Left Foot, Partial 4th Ray, Open Approach (ICD-10-PCS; 2016-09-09)
PROC: 0Y6N0ZF Detachment at Left Foot, Partial 5th Ray, Open Approach (ICD-10-PCS; 2016-09-09)
PROC: 0Y6N0Z9 Detachment at Left Foot, Partial 1st Ray, Open Approach (ICD-10-PCS; principal; 2016-09-09 12:30)
DX: A41.9 Sepsis, unspecified organism (principal); R64 Cachexia; E10.65 Type 1 diabetes mellitus with hyperglycemia; E10.42 Type 1 diabetes mellitus with diabetic polyneuropathy; D63.8 Anemia in other chronic diseases classified elsewhere; L97.524 Non-pressure chronic ulcer of other part of left foot with necrosis of bone; M86.8X7 Other osteomyelitis, ankle and foot; L97.929 Non-pressure chronic ulcer of unspecified part of left lower leg with unspecified severity; L97.919 Non-pressure chronic ulcer of unspecified part of right lower leg with unspecified severity; L97.519 Non-pressure chronic ulcer of other part of right foot with unspecified severity; Z91.81 History of falling; Z89.411 Acquired absence of right great toe; R19.7 Diarrhea, unspecified; E87.6 Hypokalemia; L02.818 Cutaneous abscess of other sites; L02.612 Cutaneous abscess of left foot; M84.675 Pathological fracture in other disease, left foot; Z68.1 Body mass index [BMI] 19.9 or less, adult
CPT/HCPCS: 36415; 80048; 80053; 80061; 80202; 82270; 82607; 82728; 82746; 82962; 83036; 83540; 83550; 83605; 83615; 84443; 85007; 85025; 85610; 85651; 85730; 86140; 86703; 86850; 86900; 86901; 86920; 87040; 87045; 87070; 87075; 87081; 87181; 87205; 87493; 93925; 93970; 94003; 94150; J1815; J2250; J2405; J8499; S5561